=== PATIENT | female | born 1985 | race Caucasian/White ===

== ENCOUNTER 2016-09-18 20:32 | Emergency (ER) | payer OTHER ==
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
== END 2016-09-18 22:55 | disposition left against medical advice (07) ==
LOC: UCEAST 20:32
DX: R10.32 Left lower quadrant pain (principal); R10.31 Right lower quadrant pain; R10.13 Epigastric pain; R19.7 Diarrhea, unspecified; Z32.02 Encounter for pregnancy test, result negative; Z88.0 Allergy status to penicillin; F17.210 Nicotine dependence, cigarettes, uncomplicated
CPT/HCPCS: 81003; 84702; 99212; G0463

== ENCOUNTER 2016-09-19 11:44 | Emergency (ER) | payer OTHER ==
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
[2016-09-19 14:11] LABS: Urine Bilirubin Negative (Negative); Urine Glucose Negative (Negative); Urine Nitrite Negative (Negative)
--- NOTE | 2016-09-19 15:09 | RAD ---
INDICATION: Alternating diarrhea and constipation COMPARISON: None TECHNIQUE: Erect and supine views of the abdomen are submitted. FINDINGS: Bones: There are no acute bony findings. Soft tissues: The soft tissues appear normal. The psoas margins are sharp. Bowel gas pattern: There are no obstructive findings but there is significant retained stool Calcifications: There are no abnormal calcifications. Other: None IMPRESSION: MODERATE RETAINED STOOL.
[2016-09-19] MEDS ORDERED: Magnesium CITRATE* 300 ML BTL PO ONE (15:37)
[2016-09-19] MEDS ORDERED: Famotidine TAB* 20 MG PO ONE (15:38)
[2016-09-19] MEDS ORDERED: Ibuprofen TAB* 400 MG PO ONE (15:39)
[2016-09-19 16:07] VITALS: BP 126/71
== END 2016-09-19 16:06 | disposition home or self-care (01) ==
LOC: ED 11:44
DX: K59.00 Constipation, unspecified (principal); R14.1 Gas pain; R10.9 Unspecified abdominal pain
CPT/HCPCS: 74020; 81003; 99282; A9270-GY

== ENCOUNTER 2017-01-10 19:28 | Emergency (ER) | payer SELFPAY ==
[2017-01-10 19:34] VITALS: BP 134/83
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
== END 2017-01-10 21:15 | disposition home or self-care (01) ==
LOC: UCEAST 19:28
DX: Z72.0 Tobacco use (principal); S93.401A Sprain of unspecified ligament of right ankle, initial encounter; X50.1XXA Overexertion from prolonged static or awkward postures, initial encounter; Y93.9 Activity, unspecified; Y92.9 Unspecified place or not applicable; J45.909 Unspecified asthma, uncomplicated; K21.9 Gastro-esophageal reflux disease without esophagitis; F32.9 Major depressive disorder, single episode, unspecified; F90.9 Attention-deficit hyperactivity disorder, unspecified type; Z88.0 Allergy status to penicillin; Z91.040 Latex allergy status; F17.210 Nicotine dependence, cigarettes, uncomplicated
CPT/HCPCS: 99213; G0463

== ENCOUNTER 2017-02-03 19:39 | Emergency (ER) | payer OTHER ==
[2017-02-03 19:45] VITALS: BP 133/77
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
== END 2017-02-03 20:44 | disposition home or self-care (01) ==
LOC: UCEAST 19:39
DX: R51 Headache (principal); H92.02 Otalgia, left ear; J35.1 Hypertrophy of tonsils; Z88.0 Allergy status to penicillin; Z88.8 Allergy status to other drugs, medicaments and biological substances; Z91.040 Latex allergy status
CPT/HCPCS: 87651; 99212; G0463

== ENCOUNTER 2017-03-07 18:29 | Emergency (ER) | payer OTHER ==
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
[2017-03-07 21:10] LABS: UR Preg Internal Control QC Line Present
--- NOTE | 2017-03-07 21:40 | RAD ---
INDICATION: Chronic ankle pain and temporal bone concern COMPARISON: Right ankle January 10, 2017 TECHNIQUE: AP, lateral, and oblique views were obtained. FINDINGS: The bony structures, joint spaces, and soft tissues are normal for age. IMPRESSION: NEGATIVE EXAMINATION
[2017-03-07 22:07] VITALS: BP 156/74
--- NOTE | 2017-03-08 07:42 | RAD ---
HISTORY: Left-sided pain and numbness, status post otitis media COMPARISONS: None TECHNIQUE: Multiple contiguous axial CT scans of the temporal bones were obtained without intravenous contrast, with coronal and sagittal multiplanar reformations. FINDINGS: RIGHT: EXTERNAL CANAL: Normal. No stenosis or soft tissue abnormality. TYMPANIC MEMBRANE: Normal. No thickening or retraction. OSSICLES: Normal. No erosion. WINDOWS: Normal. No narrowing. MIDDLE EAR: Normal. No abnormal soft tissue or fluid. The scutum is sharp. Prussak's space is clear. MASTOID: Normal. No fluid, sclerosis, or soft tissue abnormality. INNER EAR: There is no clear separation between the arcuate eminence of the superior semicircular canal and the middle cranial fossa. 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 FACIAL CANAL: Normal. No dehiscence. IAC: Normal. No expansion or asymmetry. JUGULAR FORAMEN: Normal. No expansion or erosion. CAROTID CANAL: Normal. No erosion LEFT: EXTERNAL CANAL: Normal. No stenosis or soft tissue abnormality. TYMPANIC MEMBRANE: Normal. No thickening or retraction. OSSICLES: Normal. No erosion. WINDOWS: Normal. No narrowing. MIDDLE EAR: Normal. No abnormal soft tissue or fluid. The scutum is sharp. Prussak's space is clear. MASTOID: Normal. No fluid, sclerosis, or soft tissue abnormality. INNER EAR: There is no clear separation between the arcuate eminence of the superior semicircular canal and the middle cranial fossa. 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 FACIAL CANAL: Normal. No dehiscence. IAC: Normal. No expansion or asymmetry. JUGULAR FORAMEN: Normal. No expansion or erosion. CAROTID CANAL: Normal. No erosion ADDITIONAL FINDINGS: The visualized brain and orbits are unremarkable. The visualized paranasal sinuses are clear. No other bone or soft tissue abnormalities are noted. IMPRESSION: 1. THE MASTOID AIR CELLS ARE CLEAR. THERE IS NO LOCULATED FLUID COLLECTION TO SUGGEST ABSCESS. THERE IS NO INFLAMMATORY CHANGE. 2. DEFECTS OF THE ARCUATE EMINENCE OF THE SUPERIOR SEMICIRCULAR CANALS BILATERALLY, THIS CAN BE ASSOCIATED WITH SUPERIOR SEMICIRCULAR CANAL DEHISCENCE SYNDROME IN THE CORRECT CLINICAL SETTING. 3. 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
== END 2017-03-07 23:15 | disposition home or self-care (01) ==
LOC: ED 18:29
DX: H92.02 Otalgia, left ear (principal); M25.571 Pain in right ankle and joints of right foot; G89.29 Other chronic pain; F31.9 Bipolar disorder, unspecified; Z87.891 Personal history of nicotine dependence; Z88.0 Allergy status to penicillin
CPT/HCPCS: 70480; 81025; 99282

== ENCOUNTER 2017-03-15 18:48 | Emergency (ER) | payer OTHER ==
[2017-03-15 20:59] VITALS: BP 126/85
[2017-03-15] MEDS ORDERED: Albuterol/Ipratropium NEB.SOL* Albuterol 2.5 MG/Ipratropium 0.5 MG 3 ML INH ONE (22:53)
[2017-03-15] MEDS ORDERED: diPHENhydraMINE PO* 50 MG PO ONE (22:53)
[2017-03-15] MEDS ORDERED: Ondansetron ODT TAB* 4 MG PO ONE (23:55)
[2017-03-16] MEDS ORDERED: oxyCODONE/Acetamin 5/325 MG* TAB PO ONE (00:08)
[2017-03-16] MEDS ORDERED: diPHENhydraMINE PO* 50 MG PO ONE (01:21)
[2017-03-16] MEDS ORDERED: Ondansetron ODT TAB* 4 MG PO ONE (01:22)
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
== END 2017-03-16 02:12 | disposition home or self-care (01) ==
LOC: ED 18:48
DX: T63.441A Toxic effect of venom of bees, accidental (unintentional), initial encounter (principal); R51 Headache; Y92.9 Unspecified place or not applicable; R11.0 Nausea; R06.02 Shortness of breath; R53.83 Other fatigue; Z87.891 Personal history of nicotine dependence
CPT/HCPCS: 94640; 99282; A9270-GY

== ENCOUNTER 2017-05-24 22:09 | Emergency (ER) | payer OTHER ==
[2017-05-25 00:41] VITALS: BP 130/80
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
== END 2017-05-25 00:45 | disposition home or self-care (01) ==
LOC: ED 22:09
DX: R19.00 Intra-abdominal and pelvic swelling, mass and lump, unspecified site (principal); R11.0 Nausea; R10.9 Unspecified abdominal pain; F17.210 Nicotine dependence, cigarettes, uncomplicated
CPT/HCPCS: 99283

== ENCOUNTER 2017-08-05 17:12 | Emergency (ER) | payer OTHER ==
[2017-08-05] MEDS ORDERED: Ibuprofen TAB* 600 MG PO ONE (18:27)
[2017-08-05] MEDS ORDERED: Ondansetron ODT TAB* 4 MG PO ONE (18:27)
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
[2017-08-05 18:40] VITALS: BP 145/94
[2017-08-05] MEDS ORDERED: SUMAtriptan TAB* 100 MG PO ONE (18:53)
== END 2017-08-05 18:37 | disposition home or self-care (01) ==
LOC: ED 17:12
DX: B34.9 Viral infection, unspecified (principal); B95.8 Unspecified staphylococcus as the cause of diseases classified elsewhere; R51 Headache; R21 Rash and other nonspecific skin eruption; R11.0 Nausea; H92.09 Otalgia, unspecified ear; Z87.09 Personal history of other diseases of the respiratory system
CPT/HCPCS: 99282; A9270-GY

== ENCOUNTER 2017-12-27 15:19 | Emergency (ER) | payer MEDICARE, MEDICAID ==
[2017-12-27 15:29] VITALS: BP 140/95
[2017-12-27] MEDS: Ketorolac INJ* 60 MG/2 ML VIAL IM ONE ×2 (17:16→17:18)
--- NOTE | 2017-12-27 17:39 | RAD ---
INDICATION: Back pain COMPARISON: None TECHNIQUE: Routine 2 view imaging was performed FINDINGS: Bones: There are no acute bony findings. There are no significant osteoarthritic findings. Alignment: Normal Disc spaces: The disc spaces are well-maintained Soft tissues: There are no soft tissue abnormalities. IMPRESSION: NO PLAIN RADIOGRAPHIC ABNORMALITIES.
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
[2017-12-27] MEDS: Cyclobenzaprine TAB* 10 MG PO ONE ×2 (18:04→18:05)
[2017-12-27] MEDS ORDERED: Lidocaine PATCH 5%* 1 PATCH ONE (18:14)
[2017-12-27] MEDS ORDERED: Lidocaine PATCH 5%* 1 PATCH TRANSDERM SCH (19:00)
== END 2017-12-27 18:19 | disposition home or self-care (01) ==
LOC: ED 15:19
DX: M54.9 Dorsalgia, unspecified (principal); F17.290 Nicotine dependence, other tobacco product, uncomplicated; M47.9 Spondylosis, unspecified; Z79.899 Other long term (current) drug therapy; Z88.0 Allergy status to penicillin; Z88.8 Allergy status to other drugs, medicaments and biological substances
CPT/HCPCS: 72070; 99282; A9270-GY; J1885

== ENCOUNTER 2018-06-07 19:35 | Emergency (ER) | payer MEDICARE, MEDICAID ==
--- OUTSIDE RECORDS SUMMARY | 2018-06-07 20:23 | XMS REPORT | Continuity of Care Document ---
:1985 External Reference #:[id number] Author Name Gregory Greenwood Care Team Providers Name Role Phone Charisma Padron MD Primary Care Physician Unavailable Payers Type Date Identification Numbers Payment Provider Subscriber Policy Number: [id number] Medicare Amanda Lai PayID: [id number] [address] [place] [address] Policy Number: [id number] Medicaid Amanda Lai Group Name: 1 1 [address] PayID: [id number] [place] [address] Advance Directives Description No Information Available Problems Date Description Provider Status Onset: 07/05/2015 Asthma Adair Wick NP Active Onset: 07/05/2015 Schizoaffective disorder, bipolar type Adair Wick NP Active Onset: 07/05/2015 Borderline personality disorder Adair Wick NP Active Family History Date Family Member(s) Problem(s) Comments Father 65 Mother Asthma Mother 63 Bone cancer Mother Arthritis, Osteo knees and back Mother Hypertension Siblings 2 Brother, 34, healthy Sister, 27, eating disorder Social History Type Date Description Comments Sex Unknown Marital Status Single Lives With Alone Occupation Unemployed Tobacco Use Start: Unknown Former Cigarette Quit Feb 2016; End: Unknown Smoker previously max 1ppd, began age 16 Smoking Status Reviewed: 05/28/18 Former Cigarette Quit Feb 2016; Smoker previously max 1ppd, began age 16 ETOH Use Denies alcohol use Tobacco Use Start: Unknown Patient is a current pt smokes E- Cig smoker, smokes every day Recreational Drug Use Former Drug User Exercise Type/Frequency Exercises regularly Currently Active Patient is currently sexually active Allergies, Adverse Reactions, Alerts Date Description Reaction Status Severity Comments 07/29/2009 [place]ama Active 07/29/2009 Penicillins Active 07/29/2009 Geodon Active 05/09/2016 Restoril fainting Active Medications Medication Date Status Form Strength Qnty SIG Indications Ordering Provider Viktoria 05/28 Active Capsules 75mg 30cap take one Adair s capsule by RANJAN Wick mouth once daily Valtrex 03/22 Active Tablets 500mg 30tab one tablet A60.04 Dvorah s twice a MD Mihaela day x 3 days as needed exacerbati on Nystatin 03/22 Active Cream [id number] 15gm apply to L30.4 Dvora t/GM inner MD Mihaela thighs twice a day until resolves Levocetirizine 02/15 Active Tablets 5mg 30tab 1 by mouth Adair Dihydrochloride s every at RANJAN Wick bedtime Proair 02/02 Active Aerosol 108(90Bas 1unit 2 puffs J45.20 Adair Respiclick e) s four times RANJAN Wick mcg/Act a day as needed Triamcinolone 01/19 Active Cream 0.5% 45gm apply R21 Adair Acetonide twice RANJAN Wick daily to the affected area Nystatin 01/19 Active Powder [id number] 60gm after B37.0 Adair t/GM cleansing RANJAN Wick and drying affected area, apply powder liberally every 8 hours Dicyclomine HCL 12/04 Active Capsules 10mg 60cap one Adair s capsule 2 RANJAN Wick times daily as needed Proctosol HC 11/05 Active Cream 2.5% 28.35 apply thin K64.9 Adair 0gm film to RANJAN Wick affected area 2-4 times daily Probiotic 07/05 Active Capsules 30cap 1 by mouth R19.7 Adair /2017 s every day RANJAN Wick Omeprazole 06/[address] 20mg 30cap 1 by mouth Charisma s every day Loraine Padron Albuterol 12/05 Active Nebulizer (2.5mg/3M 75ml use 1 vial R05 Adair Sulfate L) 0.083% via RANJAN Wick nebulizer 4 times daily as needed Dx R05 Pepto-Bismol 09/14 Active Tablets 262mg 45tab 2 tablets R19.7 Adari /2016 s every 4 RANJAN Wick hours as needed Metamucil Smooth 07/15 Active Powder 28.3% 1unit per K59.00 Adair Texture s package RANJAN Wick instructio ns Saline Mist 05/09 Active Solution 0.65% 45ml spray in R04.0 Adair [place] /2015 each RANJAN Wick nostril 6-8 times daily Colace / Active Capsules 100mg 90cap 1 by mouth Adair s up to 3 RANJAN Wick times a day as needed for constipati on. Fluticasone 10/07 Active Suspension 50mcg/Act 1unit 2 sprays J32.9 Adair Propionate s each RANJAN Wick nostril everyday Miralax 10/07 Active Powder 3350NF 510un 17 gm K58.0 Ciera /2015 its every day chilango Alexandre w/ 8 M.D. oz water/juic e Knee 07/02 Active Misc Adair Support/Elastic RANJAN Wick Sheer/Large Prilosec OTC 09/[address] 20mg 30tab 1 by mouth K21.9 Adair /2009 s every day RANJAN Wick Acyclovir Active Ointment 5% 30gm apply to Adair affected RANJAN Wick areas by topical route every three hours six times per day. Ezh-Til-Hlau-D Active Tablets 1 po daily Unknown 0000 Advair HFA Active Aerosol 45-21mcg/ 8unit inhale two Charisma 0000 Act s puffs Cotton, twice a M.D. day by ihnalation route, kept on person Sumatriptan Active Tablets 100mg 9tabs take one Adair Succinate tab by RANJAN Wick mouthas needed for migraine-m ay not exceed 200mg in twenty four period Mupirocin Active Ointment 2% Unknown Ondansetron Active Tablets 4mg Unknown / Dispers Melatonin Active Tablets 2 by mouth Unknown Dispers every night at bedtime Vyvanse Active Capsules 20mg once a day Isaias, /0000 MD Earline Olanzapine Active Tablets 20mg Isaias, Dispers MD Earline Escitalopram Active Tablets 10mg Unknown Oxalate Diphenhydramine Active Capsules 50mg Unknown HCL / Meloxicam Active Tablets 7.5mg 60tab take one Adair /0000 s tab by RANJAN Wick mouth two times daily as needed for pain Cyclobenzaprine Active Tablets 10mg 90tab one by Adair HCL /0000 s mouth RANJAN Wick three times a day as needed spasm Montelukast Active Tablets 10mg 30tab Take One Adair Sodium /0000 s Tablet By RANJAN Wick Mouth Every Night AT Bedtime Doxycycline 04/23 Hx Tablets 100mg 20tab 1 po bid x L08.9 Nighat Hyclate /2017 s 10 days Varn, N.P. - 05/03 Clindamycin HCL 01/19 Hx Capsules 300mg 21cap one K08.89 Adair s capsule by RANJAN Wick - mouth 01/23 every hours for 7 days Acetaminophen-Co 01/19 Hx Tablets 300-30mg 16tab 1-2 K08.89 Adair deine #3 s tablets RANJAN Wick - every 12 Fluconazole 01/19 Hx Tablets 150mg 2tabs one by B37.2 Adair mouth october RANJAN Wick - repeat in 01/23 3 days needed Clotrimazole 07/05 Hx Lozenges 10mg 70uni one B37.9 Adair ts lozenge 5 RANJAN Wick - x day for 09/01 2 weeks. Cetirizine HCL 07/05 Hx Tablets 10mg 30tab 1 by mouth J32.9 Charisma s every day Eugenia Padron M.D. 04/23 Pantoprazole 05/[address] 20mg 30tab 1 by mouth K21.9 Nighat Sodium s every day Varn, N.P. - 07/05 Clindamycin 04/28 Hx Lotion 1% 60ml apply L70.0 Adair Phosphate twice RANJAN Wick - daily to 09/01 areas Cetirizine HCL 01/19 Hx Tablets 10mg 30tab 1 by mouth J32.9 Adair /2016 s every day RANJAN Wick - 04/28 Loratadine 12/29 Hx Tablets 10mg 30tab 1 by mouth Adair s daily Delano, ADMISSIONS ADVISOR - every 11/02 night at bedtime Fluconazole 12/13 Hx Tablets 150mg 2tabs one by mouth october RANJAN Wick - repeat in 08/17 3 days needed Robitussin 12/05 Hx Liquid 100mg/5ML 236ml 2 teaspoon R05 Adair Mucus+Chest 4 times a Delano ADMISSIONS ADVISOR Congestion - day 12/05 Nystatin 12/05 Hx Suspension [id number] 250ml 4 B37.0 t/ML milliliter Delano, ADMISSIONS ADVISOR - s four 01/19 times a day, swish and swallow for 14 days Clindamycin HCL 12/05 Hx Capsules 300mg 40cap one K08.89 s capsule by RANJAN Wick - mouth 12/15 every hours for 10 days Robitussin DM 12/05 Hx Syrup 100-10mg/ 118ml 10ml every R05 5ML 4-6 hours RANJAN Wick - 12/21 QC Natural 10/20 Hx Powder 95% 368un Use Per Adair its Package RANJAN Wick - Instructio 09/01 ns Gabapentin 10/13 Hx Capsules 100mg 90cap take 3 s capsule by Varkelly, N.P. - mouth 05/28 times a day Benzonatate 10/13 Hx Capsules 200mg 30cap one by s mouth RANJAN Wick - three 12/21 daily as needed for cough Doxycycline 10/13 Hx Capsules 100mg 20cap one tablet J01.90 Adair Hyclate s twice RANJAN Wick - daily for 10/23 10 days. Ondansetron HCL 09/14 Hx Tablets 4mg 20tab 1 tab R11.0 s every 8 RANJAN Wick - hours as 09/21 needed nausea Rectiv 08/08 Hx Ointment 0.4% 90gm apply K60.1 Tan P. /2017 intra-anal MD Yuli, - ly twice a FACS 11/02 day for weeks Lidocaine 08/08 Hx Solution 2% 100ml apply to K60.1 Tan Manzo. Viscous buttock MD Ylui, - every 12 FACS 12/21 hours as /2017 needed pain Benzonatate 07/22 Hx Capsules 200mg 30cap 1 tab by J01.90 Adair s mouth RANJAN Wick - three 08/02 times day as needed Doxycycline 04/21 Hx Capsules 100mg 20cap 1 by mouth Rosalva Hycl s twice a Craven, - day M.D. 05/09 Tessalon Perles 04/15 Hx Capsules 100mg 30cap 1-2 by Cristian EParrish s mouth Kalani, - three M.D. 05/09 times day as needed for cough Dextromethorphan 04/15 Hx Solution 10-100mg/ 200ml 5 mL every Jarocho -Guaifen 5ML 6 hours as Kermit, - needed for M.D. 05/09 cough Nicotine Mini 04/14 Hx Lozenges 4mg 162un 1 by mouth Cristian E. its up to 3 Kalani, - times per M.D. 12/21 hour, is 20 per day Loratadine 11/16 Hx Tablets 10mg 30tab 1 by mouth s daily Baldomero, - every M.D. 10/27 night at bedtime Ondansetron HCL 11/12 Hx Tablets 8mg 20tab take 1 by R11.0 s mouth as Baldomero, - need 1-2 x M.D. 04/14 per for nausea Anucort-HC 10/07 Hx Suppository 25mg 24uni [address] K64.9 ts of rectum RANJAN Wick - every 8 11/05 hours needed. Hydrocortisone 10/07 Hx Cream 2.5% 45gm apply as K64.9 needed Baldomero, - M.D. 04/14 Fluconazole 08/24 Hx Tablets 150mg 2tabs 1 by mouth then Baldomero, - repeat x1 M.D. 04/14 in Doxycycline 07/[address] 100mg 20tab 1 by mouth Cristian Salcedo clate s twice a Kalani, - day x 10 M.D. Benzonatate 07/08 Hx Capsules 200mg 30cap 1 tab by J01.90 Cristian E. s mouth Kalani, - three M.D. 08/21 times a day as needed Ventolin HFA 07/08 Hx Aerosol 108(90Bas 1unit 2 puffs J45.20 Charisma /2016 e) s four times Cotton, - mcg/Act a day as M.D. 02/02 Calcium-Magnesiu 07/02 Hx Tablets 333-133-5 30tab one tablet Adair m-Zinc mg s daily. RANJAN Wick - 07/02 Seasonique 04/28 Hx Tablets 0.15-0.03 91tab take 1 Cristian E. &0.01mg s tablet by Kalani, - mouth once M.D. 07/02 a day Daily Vitamin 04/28 Hx Tablets 1 daily Cristian E. Formula+Iron Eugenia Uriarte M.D. 07/02 Flovent HFA 04/28 Hx Aerosol 110mcg/Ac 1unit 2 puff bid Cristian Salcedo t s Eugenia Uriarte M.D. 07/02 Spacer Tube 04/28 Hx 1unit use with Cristian Salcedo /2010 s Angelo Uriarte - inhaler M.DParrish 07/02 Ibuprofen 12/09 Hx Tablets 400mg 100ta 400 mg po E885.9 Gurdeep /2010 bs q4-6h; nataly Glaser, - 2400 M.D.,FACP 07/02 mg/day Singulair 06/09 Hx Tablets 10mg 30tab 1 po qd 493.00 [place] /2009 Eugenia Montague M.D. 12/09 Cipro 01/04 Hx Tablets 500mg 20tab bid 599.0 Mervat, /2009 s MD Gunner - 05/11 Ventolin HFA 07/29 Hx Aerosol 108(90Bas 1unit 2 puffs 493.00 Cristian EParrish e) mcg/ac s qid prn Eugenia Uriarte M.D. 07/08 Advair Diskus 07/29 Hx Misc 250-50mcg 2unit 1 puff bid 493.00 Prestonanomichelle /2009 /Dose s Toni - M.D. 06/09 Cleocin-T 07/29 Hx Gel 1% 1tube 1 706.1 Gurdeep millie Glaser - kelly loving M.D.,[facility] 07/02 Noris Hx Tablets 3-0.02mg 1Mont 1 po qd Unknown /0000 h - 04/28 Ambien Hx Tablets 10mg 10tab 1 po qhs Unknown /0000 s prn sleep - insomnia 06/09 Neurontin Hx Capsules 100mg 90cap tid Unknown /0000 s - 11/24 Zyprexa Hx Tablets 10mg 1 po qpm Unknown 0000 - 12/28 Celexa Hx Tablets po bid - 12/09 Ambien Hx Tablets 10mg 30tab 1 po qhs Unknown /0000 s prn sleep - insomnia 10/07 Docqlace Hx Capsules 100mg take 1 cap Sim- twice ktor, - daily by Jaida Card, 04/14 mouth as needed Valacyclovir HCL Hx Tablets 500mg take one Sim- tab by joe, - mouth Jaida Card, 04/14 every 12hrs for 5 days Naproxen Hx Tablets 500mg one tab Sim-0000 twice ktor, - daily as Jaida Card, 04/14 needed Nicotine Hx Gum 4mg Sim- Polacrilex / ktor, - Jaida Card, 07/08 Clonidine HCL Hx Tablets 0.1mg take one Unknown 0000 tab by - mouth at 11/02 bedtime Citalopram Hx Tablets 20mg take one Unknown Hydrobromide 0000 tab by - mouth 10/07 Mupirocin Hx Ointment 2% apply to iGnamackenzie, affected [facility] herb Mcfarland, 04/14 times daily Tizanidine HCL Hx Tablets 4mg take one Unknown 0000 tab by - mouth 04/14 times a day as needed Ibuprofen Hx Tablets 600mg 1 by mouth Unknown /0000 three - times a 04/14 day as needed Norethindrone Hx Tablets 0.35mg 1 by mouth Unknown /0000 every day - 07/08 Calcium-Magnesiu Hx Tablets daily Unknown m-Zinc /0000 - 08/21 Zofran Hx Solution 4mg/5ML one every Unknown /0000 six to - eight 04/14 hours needed Zoloft Hx Tablets 50mg 1 by mouth Unknown /0000 every day - 04/14 Trazodone HCL Hx Tablets 100mg 1 by mouth Unknown /0000 every - night at 04/14 Bupropion HCL ER Hx Tablets ER 150mg 1 by mouth Unknown (SR) /0000 12HR a day - 09/01 Ambien CR Hx Tablets ER 12.5mg take 1 Unknown /0000 tablet by - mouth at 09/01 max 1/day Pro-Elite Hx diet pill Unknown /0000 - 09/01 Levocetirizine Hx Tablets 5mg 30tab 1 by mouth J32.9 Adair Dihydrochloride /0000 s every at Delano, ADMISSIONS ADVISOR - bedtime 01/19 Tizanidine HCL Hx Capsules 4mg 1 three Unknown /0000 times a - day as 12/21 needed Ibuprofen Hx Tablets 600mg 1 by mouth Unknown /0000 three - times a 11/07 day needed Methylphenidate Hx Tablets ER 36mg pending. Unknown HCL ER /0000 24HR pt does - not like 09/01 med. /2017 Benadryl Allergy Hx Tablets 25mg 2 tabs by Unknown /0000 mouth 1 - hour prior 12/28 to procedure Hyoscyamine Hx Tablets 0.125mg 120ta take one Adair Sulfate /0000 Dispers bs tab by Delano, ADMISSIONS ADVISOR - mouth four 12/04 time daily Immunizations CPT Code Status Date Vaccine Reaction Lot # [id number] Given 04/28/2017 Influenza Virus Vaccine, No immediate [id number] Quadrivalent, Split, reaction...jh Preservative Free [id number] Given 03/28/2011 Influenza Virus 3Yrs & Over [id number] Vital Signs Date Vital Result Comment 05/28/2018 3:59pm Height 68 inches 5'8" Weight 251.00 lb Heart Rate 113 /min BP Systolic 147 mmHg BP Diastolic 91 mmHg O2 % BldC Oximetry 95 % BMI (Body Mass Index) 38.2 kg/m2 04/23/2018 3:34pm Height 68 inches 5'8" Weight 247.00 lb Heart Rate 110 /min BP Systolic 139 mmHg BP Diastolic 85 mmHg Body Temperature 97.9 F O2 % BldC Oximetry 96 % BMI (Body Mass Index) 37.6 kg/m2 03/22/2018 10:02am Height 68 inches 5'8" Weight 233.00 lb Heart Rate 115 /min BP Systolic 120 mmHg BP Diastolic 60 mmHg O2 % BldC Oximetry 97 % BMI (Body Mass Index) 35.4 kg/m2 Last Menstrual Period [id number] 03/15/2018 2:57pm Height 68 inches 5'8" Weight 233.00 lb Heart Rate 109 /min BP Systolic 134 mmHg BP Diastolic 86 mmHg Body Temperature 98.7 F O2 % BldC Oximetry 97 % BMI (Body Mass Index) 35.4 kg/m2 01/19/2018 3:46pm Height 68 inches 5'8" Weight 235.50 lb Heart Rate 114 /min BP Systolic 138 mmHg BP Diastolic 79 mmHg Body Temperature 98.1 F O2 % BldC Oximetry 98 % BMI (Body Mass Index) 35.8 kg/m2 12/29/2017 3:50pm Height 68 inches 5'8" Weight 235.00 lb Heart Rate 114 /min BP Systolic Sitting 152 mmHg BP Diastolic Sitting 89 mmHg Body Temperature 98.8 F O2 % BldC Oximetry 97 % BMI (Body Mass Index) 35.7 kg/m2 11/02/2017 1:28pm Weight 234.50 lb Heart Rate 98 /min BP Systolic 124 mmHg BP Diastolic 72 mmHg Body Temperature 98.3 F O2 % BldC Oximetry 95 % 09/01/2017 12:57pm Weight 228.00 lb Heart Rate 108 /min BP Systolic 126 mmHg BP Diastolic 84 mmHg Body Temperature 98.8 F O2 % BldC Oximetry 96 % 07/05/2017 2:41pm Weight 229.00 lb Heart Rate 110 /min BP Systolic 128 mmHg BP Diastolic 80 mmHg Body Temperature 98.5 F O2 % BldC Oximetry 98 % 05/05/2017 1:57pm Weight 227.00 lb Heart Rate 114 /min BP Systolic 118 mmHg BP Diastolic 82 mmHg Body Temperature 98.5 F O2 % BldC Oximetry 98 % 04/28/2017 3:49pm Weight 227.75 lb Heart Rate 133 /min BP Systolic Sitting 122 mmHg BP Diastolic Sitting 80 mmHg Body Temperature 98.8 F O2 % BldC Oximetry 98 % 12/05/2016 1:15pm Weight 233.50 lb BP Systolic 126 mmHg BP Diastolic 78 mmHg Body Temperature 96.8 F 10/13/2016 11:40am Weight 254.50 lb Heart Rate 104 /min BP Systolic 110 mmHg BP Diastolic 70 mmHg Body Temperature 97.8 F O2 % BldC Oximetry 96 % 09/14/2016 11:14am Weight 247.00 lb with shoes Heart Rate 112 /min BP Systolic 98 mmHg BP Diastolic 66 mmHg Body Temperature 97.7 F O2 % BldC Oximetry 98 % 08/08/2016 3:31pm Height 68 inches 5'8" Weight 240.00 lb Heart Rate 88 /min BP Systolic 138 mmHg BP Diastolic 90 mmHg Respiratory Rate 18 /min Body Temperature 97.9 F BMI (Body Mass Index) 36.5 kg/m2 08/04/2016 2:05pm Height 68 inches 5'8" Weight 240.00 lb Heart Rate 104 /min BP Systolic 152 mmHg BP Diastolic 98 mmHg Respiratory Rate 18 /min Body Temperature 98.4 F BMI (Body Mass Index) 36.5 kg/m2 07/22/2016 2:56pm Weight 248.00 lb Heart Rate 129 /min BP Systolic Sitting 138 mmHg BP Diastolic Sitting 86 mmHg Body Temperature 99.9 F O2 % BldC Oximetry 97 % 07/15/2016 1:41pm Weight 247.00 lb Heart Rate 108 /min BP Systolic Sitting 124 mmHg BP Diastolic Sitting 86 mmHg Body Temperature 98.6 F O2 % BldC Oximetry 96 % 05/09/2016 1:34pm Weight 248.00 lb with shoes Heart Rate 125 /min BP Systolic Sitting 136 mmHg BP Diastolic Sitting 76 mmHg Body Temperature 98.0 F O2 % BldC Oximetry 98 % 04/14/2016 2:12pm Weight 242.38 lb Heart Rate 91 /min BP Systolic Sitting 120 mmHg BP Diastolic Sitting 60 mmHg Body Temperature 98.8 F O2 % BldC Oximetry 98 % 11/13/2015 1:49pm Weight 244.00 lb Heart Rate 114 /min BP Systolic Sitting 143 mmHg BP Diastolic Sitting 80 mmHg Body Temperature 98.7 F 10/08/2015 1:43pm Weight 247.00 lb Heart Rate 96 /min BP Systolic Sitting 142 mmHg BP Diastolic Sitting 87 mmHg Body Temperature 97.9 F 08/21/2015 1:33pm Height 67 inches 5'7" Weight 245.25 lb Heart Rate 88 /min BP Systolic 120 mmHg BP Diastolic 74 mmHg Body Temperature 98.1 F O2 % BldC Oximetry 98 % BMI (Body Mass Index) 38.4 kg/m2 08/21/2015 1:31pm Height 67 inches 5'7" Weight 245.25 lb BMI (Body Mass Index) 38.4 kg/m2 07/21/2015 4:38pm Height 67.5 inches 5'7.50" Weight 240.00 lb Heart Rate 113 /min BP Systolic 162 mmHg BP Diastolic 89 mmHg Body Temperature 99.7 F O2 % BldC Oximetry 98 % BMI (Body Mass Index) 37.0 kg/m2 07/08/2015 4:01pm Height 67.5 inches 5'7.50" Weight 240.00 lb Heart Rate 98 /min BP Systolic 138 mmHg BP Diastolic 80 mmHg Body Temperature 99.3 F O2 % BldC Oximetry 99 % BMI (Body Mass Index) 37.0 kg/m2 07/02/2015 3:15pm Height 67.5 inches 5'7.50" Weight 240.00 lb Heart Rate 92 /min BP Systolic Sitting 108 mmHg BP Diastolic Sitting 60 mmHg Body Temperature 98.4 F O2 % BldC Oximetry 98 % BMI (Body Mass Index) 37.0 kg/m2 04/28/2011 3:32pm Height 67.5 inches 5'7.50" Weight 200.25 lb Heart Rate 88 /min BP Systolic Sitting 100 mmHg BP Diastolic Sitting 60 mmHg Body Temperature 99.2 F BMI (Body Mass Index) 30.9 kg/m2 03/28/2011 3:06pm Weight 203.00 lb Heart Rate 94 /min BP Systolic Sitting 100 mmHg BP Diastolic Sitting 60 mmHg Body Temperature 96.8 F 12/09/2010 4:06pm Weight 199.00 lb Heart Rate 70 /min BP Systolic Sitting 100 mmHg BP Diastolic Sitting 62 mmHg 06/09/2010 1:29pm Weight 202.00 lb Heart Rate 96 /min BP Systolic 104 mmHg BP Diastolic 60 mmHg 01/04/2010 4:00pm Weight 210.00 lb Heart Rate 100 /min BP Systolic Sitting 102 mmHg BP Diastolic Sitting 72 mmHg 08/25/2009 3:42pm Heart Rate 66 /min BP Systolic Sitting 128 mmHg BP Diastolic Sitting 80 mmHg Body Temperature 99.1 F 07/29/2009 2:23pm Height 67.50 inches 5'7.50" Weight 230.00 lb Heart Rate 88 /min BP Systolic Sitting 140 mmHg BP Diastolic Sitting 8 mmHg BMI (Body Mass Index) 35.5 kg/m2 Results Test Date Facility Test Result H/L Range Note Laboratory test [facility] Cytology SEE RESULT 1 finding [address] [place] [address] [phone] GC/Chlamydia [facility] Chlamydia Negative Negative Amplified Rna [address] [place] [address] [phone] Neisseria gonorrhoeae (GC) Rna Negative Negative CBC Auto 11/02/2017 [facility] White Blood 11.4 10^3/uL High 3.5-10.[address] [place] [address] [phone] Red Blood Count 4.41 10^6/uL N 4.0-5.4 Hemoglobin 13.2 g/dL N 12.0-16.0 Hematocrit 38 % N 35-47 Mean Corpuscular Volume 87 fL N 80-97 Mean Corpuscular Hemoglobin 30 pg N 27-31 Mean Corpuscular HGB Conc 34 g/dL N 31-36 Red Cell Distribution Width 13 % N 10.5-15 Platelet Count 355 10^3/uL N 150-450 Mean Platelet Volume 7.7 um3 N 7.4-10.4 Abs Neutrophils 5.5 10^3/uL N 1.5-7.7 Abs Lymphocytes 5.1 10^3/uL High 1.0-4.8 Abs Monocytes 0.7 10^3/uL N 0-0.8 Abs Eosinophils 0.1 10^3/uL N 0-0.6 Abs Basophils 0.1 10^3/uL N 0-0.2 Abs Nucleated RBC 0 10^3/uL Granulocyte % 47.8 % N 38-83 Lymphocyte % 44.7 % N 25-47 Monocyte % 5.9 % N 0-7 Eosinophil % 0.9 % N 0-6 Basophil % 0.7 % N 0-2 Nucleated Red Blood Cells % 0 Comp Metabolic Panel 11/02/2017 [facility] Sodium 142 mmol/L N 139-145 [address] [place] [address] [phone] Potassium 4.0 mmol/L N 3.5-5.0 Chloride 107 mmol/L N 101-111 Co2 Carbon Dioxide 26 mmol/L N 22-32 Anion Gap 9 mmol/L N 2-11 Glucose 116 mg/dL High 70-100 Blood Urea Nitrogen 6 mg/dL N 6-24 Creatinine 0.60 mg/dL N 0.51-0.95 BUN/Creatinine Ratio 10.0 N 8-20 Calcium 9.2 mg/dL N 8.6-10.3 Total Protein 6.8 g/dL N 6.4-8.9 Albumin 4.3 g/dL N 3.2-5.2 Globulin 2.5 g/dL N 2-4 Albumin/Globulin Ratio 1.7 N 1-3 Total Bilirubin 0.40 mg/dL N 0.2-1.0 Alkaline Phosphatase 59 U/L N 34-104 Alt 20 U/L N 7-52 Ast 15 U/L N 13-39 Egfr Non- 115.9 >60 Egfr 149.0 >60 2 Laboratory test 11/02/2017 [facility] Lipase 10 U/L Low 11.0- 82.0 finding [address] [place] [address] [phone] Erythrocyte Sed Rate 13 mm/Hr N 0-14 C Reactive Protein 5.04 mg/L High < 5.00 3 Urinalysis Profile 11/02/2017 [facility] Urine Color Straw [address] [place] [address] [phone] Urine Appearance Clear Urine Specific Marshall 1.003 Low 1.010-1.030 Urine pH 8.0 N 5-9 Urine Urobilinogen Negative Negative Urine Ketones Negative Negative Urine Protein Negative Negative Urine Leukocytes Negative Negative Urine Blood Negative Negative Urine Nitrite Negative Negative Urine Bilirubin Negative Negative Urine Glucose Negative Negative Laboratory test 11/02/2017 [facility] TSH (Thyroid 1.33 N 0.34 -5.[address] [facility] Stim Horm) mcIU/[place] [address] [phone] CBC Auto Diff 07/05/2017 [facility] White Blood 11.8 High 3.5- 10.[address] Count 10^3/[place] [address] [phone] Red Blood Count 4.74 10^6/uL N 4.0-5.4 Hemoglobin 14.1 g/dL N 12.0-16.0 Hematocrit 41 % N 35-47 Mean Corpuscular Volume 87 fL N 80-97 Mean Corpuscular Hemoglobin 30 pg N 27-31 Mean Corpuscular HGB Conc 34 g/dL N 31-36 Red Cell Distribution Width 13 % N 10.5-15 Platelet Count 320 10^3/uL N 150-450 Mean Platelet Volume 8 um3 N 7.4-10.4 Abs Neutrophils 7.0 10^3/uL N 1.5-7.7 Abs Lymphocytes 4.0 10^3/uL N 1.0-4.8 Abs Monocytes 0.7 10^3/uL N 0-0.8 Abs Eosinophils 0.1 10^3/uL N 0-0.6 Abs Basophils 0.1 10^3/uL N 0-0.2 Abs Nucleated RBC 0 10^3/uL Granulocyte % 59.6 % N 38-83 Lymphocyte % 33.6 % N 25-47 Monocyte % 5.8 % N 1-9 Eosinophil % 0.5 % N 0-6 Basophil % 0.5 % N 0-2 Nucleated Red Blood Cells % 0 Comp Metabolic Panel 07/05/2017 [facility] Sodium 138 mmol/L N 133-[address] [place] [address] [phone] Potassium 4.0 mmol/L N 3.5-5.0 Chloride 104 mmol/L N 101-111 Co2 Carbon Dioxide 26 mmol/L N 22-32 Anion Gap 8 mmol/L N 2-11 Glucose 140 mg/dL High 70-100 Blood Urea Nitrogen 9 mg/dL N 6-24 Creatinine 0.67 mg/dL N 0.51-0.95 BUN/Creatinine Ratio 13.4 N 8-20 Calcium 9.2 mg/dL N 8.6-10.3 Total Protein 6.6 g/dL N 6.4-8.9 Albumin 4.1 g/dL N 3.2-5.2 Globulin 2.5 g/dL N 2-4 Albumin/Globulin Ratio 1.6 N 1-3 Total Bilirubin 0.40 mg/dL N 0.2-1.0 Alkaline Phosphatase 56 U/L N 34-104 Alt 32 U/L N 7-52 Ast 21 U/L N 13-39 Egfr Non- 102.0 >60 Egfr 131.2 >60 4 Laboratory test 07/05/2017 [facility] Lipase < 10 U/L Low 11.0 -82.[address] [place] [address] [phone] Urinalysis 07/05/2017 [facility] Urine Color Yellow Profile [address] [place], [place] [id number] [phone] Urine Appearance Clear Urine Specific Marshall 1.013 N 1.010-1.030 Urine pH 5.0 N 5-9 Urine Urobilinogen Negative Negative Urine Ketones Negative Negative Urine Protein Negative Negative Urine Leukocytes Negative Negative Urine Blood Negative Negative Urine Nitrite Negative Negative Urine Bilirubin Negative Negative Urine Glucose Negative Negative Laboratory test 03/07/2017 [facility] (HCG) Negative N Negative 5 finding 101 [place] [address] [phone] Laboratory test 02/03/2017 [facility] Rapid Strep Negative N Negative [address] Molecular [place], [place] [id number] [phone] Urinalysis 09/19/2016 [facility] Urine Color Straw N Profile [address] [place], [place] [id number] [phone] Urine Appearance Clear N Urine Specific Marshall 1.002 Low 1.010-1.030 Urine pH 8.0 N 5-9 Urine Urobilinogen Negative N Negative Urine Ketones Negative N Negative Urine Protein Negative N Negative Urine Leukocytes Negative N Negative Urine Blood Negative N Negative Urine Nitrite Negative N Negative Urine Bilirubin Negative N Negative Urine Glucose Negative N Negative Wound 02/18/2016 [facility] Wound/Misc SEE RESULT 7, 8 Culture/Sensi [address] [place] [address] Stain [phone] Ua Routine 11/13/2015 [facility] House Ua Specific 1.020 Marshall Ua PH 5 Ua Color dark yellow Ua Appera cloudy Ua WBC neg Ua Protein neg Ua Glucose neg Ua Ketones neg Ua Bilirubin neg Ua Urobilinogen norm Ua Nitrite neg Ua Occult Blood neg CBC Auto Diff 11/13/2015 [facility] White Blood 9.1 10^3/uL N 3.5-10.[address] [place] [address] [phone] Red Blood Count 4.58 10^6/uL N 4.0-5.4 Hemoglobin 13.4 g/dL N 12.0-16.0 Hematocrit 41 % N 35-47 Mean Corpuscular Volume 90 fL N 80-97 Mean Corpuscular Hemoglobin 29 pg N 27-31 Mean Corpuscular HGB Conc 32 g/dL N 31-36 Red Cell Distribution Width 14 % N 10.5-15 Platelet Count 309 10^3/uL N 150-450 Mean Platelet Volume 8 um3 N 7.4-10.4 Abs Neutrophils 4.6 10^3/uL N 1.5-7.7 Abs Lymphocytes 3.7 10^3/uL N 1.0-4.8 Abs Monocytes 0.6 10^3/uL N 0-0.8 Abs Eosinophils 0 10^3/uL N 0-0.6 Abs Basophils 0.1 10^3/uL N 0-0.2 Abs Nucleated RBC 0.02 10^3/uL N Granulocyte % 51.2 % N 38-83 Lymphocyte % 40.8 % N 25-47 Monocyte % 6.4 % N 1-9 Eosinophil % 0.5 % N 0-6 Basophil % 1.1 % N 0-2 Nucleated Red Blood Cells % 0.2 N Laboratory test 11/13/2015 [facility] Erythrocyte Sed 18 mm/Hr High 0-[address] [place] [address] [phone] C Reactive Protein 16.34 mg/L High < 5.00 9 Urinalysis Profile 11/11/2015 [facility] Urine Color Straw N [address] [place] [address] [phone] Urine Appearance Clear N Urine Specific [place] 1.008 Low 1.010-1.030 Urine pH 6.0 N 5-9 Urine Urobilinogen Negative N Negative Urine Ketones Negative N Negative Urine Protein Negative N Negative Urine Leukocytes Negative N Negative Urine Blood Negative N Negative Urine Nitrite Negative N Negative Urine Bilirubin Negative N Negative Urine Glucose Negative N Negative CBC Auto 11/11/2015 [facility] White Blood 12.2 10^3/uL High 3.5-10.[address] [place] [address] [phone] Red Blood Count 4.74 10^6/uL N 4.0-5.4 Hemoglobin 14.1 g/dL N 12.0-16.0 Hematocrit 42 % N 35-47 Mean Corpuscular Volume 89 fL N 80-97 Mean Corpuscular Hemoglobin 30 pg N 27-31 Mean Corpuscular HGB Conc 33 g/dL N 31-36 Red Cell Distribution Width 14 % N 10.5-15 Platelet Count 346 10^3/uL N 150-450 Mean Platelet Volume 7 um3 Low 7.4-10.4 Abs Neutrophils 7.5 10^3/uL N 1.5-7.7 Abs Lymphocytes 3.8 10^3/uL N 1.0-4.8 Abs Monocytes 0.7 10^3/uL N 0-0.8 Abs Eosinophils 0 10^3/uL N 0-0.6 Abs Basophils 0.1 10^3/uL N 0-0.2 Abs Nucleated RBC 0.01 10^3/uL N Granulocyte % 61.8 % N 38-83 Lymphocyte % 31.3 % N 25-47 Monocyte % 5.7 % N 1-9 Eosinophil % 0.1 % N 0-6 Basophil % 1.1 % N 0-2 Nucleated Red Blood Cells % 0.1 N Comp Metabolic Panel 11/11/2015 [facility] Sodium 138 mmol/L N 133-[address] [place] [address] [phone] Potassium 4.0 mmol/L N 3.5-5.0 Chloride 109 mmol/L N 101-111 Co2 Carbon Dioxide 20 mmol/L Low 22-32 Anion Gap 9 mmol/L N 2-11 Glucose 101 mg/dL High 70-100 Blood Urea Nitrogen 6 mg/dL N 6-24 Creatinine 0.60 mg/dL N 0.51-0.95 BUN/Creatinine Ratio 10.0 N 8-20 Calcium 9.2 mg/dL N 8.6-10.3 Total Protein 7.2 g/dL N 6.4-8.9 Albumin 4.4 g/dL N 3.2-5.2 Globulin 2.8 g/dL N 2-4 Albumin/Globulin Ratio 1.6 N 1-3 Total Bilirubin 0.40 mg/dL N 0.2-1.0 Alkaline Phosphatase 63 U/L N 34-104 Alt 21 U/L N 7-52 Ast 17 U/L N 13-39 Egfr Non- 117.4 N >60 Egfr 151.0 N >60 10 Laboratory test finding 11/11/2015 [facility] Lipase 11 U/L N 11.0-82.[address] [place] [address] [phone] C Reactive Protein 5.98 mg/L High < 5.00 11 Laboratory test 08/21/2015 [facility] Cytology SEE RESULT BELOW [address] [place] [address] [phone] Gardnerella/Yeast: Vaginal Dna SEE RESULT BELOW 13 GC/Chlamydia 08/21/2015 [facility] Chlamydia Negative N Negative Amplified Rna [address] [place] [address] [phone] Neisseria gonorrhoeae (GC) Rna Negative N Negative Laboratory test 08/21/2015 [facility] Trichomonas Negative N Negative [address] [address] [phone] Stool For Blood 07/14/2015 [facility] Miscellaneous Lab neg x3 CBC With 01/26/2010 [facility] White Blood Count 10.2 CUMM 4.8-10.8 Electronic Diff [address] [place] [address] [phone] Red Cell Count 4.24 CUMM 4.2-5.4 Hemoglobin 13.2 g/dL 12.0-16.0 Hematocrit 39 % 35-47 Mean Corpuscular Volume 91 um3 79-97 Mean Corpuscular Hemoglob 31 pg 27-31 Mean Corpuscular HGB Cone 34 g/dL 32-36 Redcell Distribution WDTH 13 % 10.5-15 Platelet Count 288 CUMM 150-450 Mean Platelet Volume 7.3 um3 Low 7.4-10.4 Gran % 60.9 % 38-83 Lymph % 31.1 % 25-47 Mononuclear % 6.8 % 1-9 Eosinophil % 0.7 % 0-6 Basophil % 0.5 % 0-2 Abs Lymphs 3.2 1.0-4.8 Abs Mononuclear 0.7 0-0.8 Absolute Neutrophil Count 6.2 1.5-7.7 Abs Eosinophils 0.1 0-0.6 Abs Basophils 0.1 0-0.2 Comp Metabolic Panel 01/26/2010 [facility] Sodium 140 mmol/L 135-145 [address] [place] [address] [phone] Potassium 4.0 mmol/L 3.5-5.0 Chloride 109 mmol/L 101-111 Co2 (Carbon Dioxide) 23.0 mmol/L 22-32 Anion Gap 8.0 mmol/L 2-11 15 Glucose 97 mg/dL 70-100 16 BUN 8 mg/dL 6-24 Creatinine 0.60 mg/dL 0.50-1.40 One Over Creatinine 1.60 BUN/Creatinine Ratio 13.3 8-20 Calcium 9.0 mg/dL 8.1-9.9 17 Total Protein 6.5 GM/DL 6.2-8.1 Albumin 3.8 GM/DL 3.6-5.4 Globulin 2.7 GM/DL 2-4 Albumin/Globulin Ratio 1.4 1-3 Bilirubin Total 0.6 mg/dL 0.4-1.5 18 Alkaline Phosphatase 52 U/L 30-110 Alt (SGPT) 16 U/L 14-54 Ast (Sgot) 15 U/L 12-42 eGFR Non- 130.5 > 60 eGFR 158.0 > 60 19 Lipid Profile 01/26/2010 [facility] Triglyceride 126 mg/dL 40 -200 (Trig/Chol/HDL) [address] [place] [address] [phone] Cholesterol 165 mg/dL Less Than 200 20 High Density Lipoprotein 30 mg/dL Low 40-60 21 Cholesterol/HDL Ratio 5.50 AVERAGE High 1-4.44 Low Density Lipoprotein 110 mg/dL High Less Than 100 22 Liver Function 01/26/2010 [facility] Bilirubin Direct 0.1 mg/dL 0.1-0.5 Panel [address] [place] [address] [phone] Indirect Bilirubin 0.5 mg/dL 0.3-1.0 23 Urinalysis W/Microscopic 01/04/2010 [facility] Ua Color YELLOW Yellow [address] [place] [address] [phone] Appearance-Urine CLEAR Clear Specific Marshall-Ur 1.021 1.010-1.030 Esterase-Urine NEGATIVE Negative Nitrite NEGATIVE Negative Ogxowpalrxwh-Jm-DUK NEGATIVE Negative Protein-Urine NEGATIVE Negative PH-Urine 6.5 5-9 Blood-Urine 3+ Abnormal Negative Ketones-Urine NEGATIVE Negative Bilirubin-Ur NEGATIVE Negative Glucose-Urine NEGATIVE Negative WBC-Urine 1-3 0-5 RBC-Urine 25-30 Abnormal 0-2 Epith Cells-Ur MANY None Bacteria-Urine 1+ None Amorphous Sed-U TRACE None Urine Culture & 01/04/2010 [facility] Urine Culture NG [address] [address] [phone] 1 SEE RESULT BELOW Name: AMANDA LAI : [address]: Ene Chairez MD Acct: [id number] Unit: [id number] AGE: 32 Location: [facility] Re03/22/18 SEX: F Status: REG REF SPEC: [id number] MAGUE: 03/22/18-1102 [facility] DR: Ene Chairez MD REQ: [id number] RECD: 03/22/187442 STATUS: SOUT _ ORDERED: TP IMAGE ANALYS, HPV/Thin Prep COMMENTS: [id number] Negative for Intraepithelial lesion or Malignancy Date Time Test Result Flag (u) Normal Range 03/22/18 1103 @ HPV RNA Negative Negative @ @ The high-risk HPV types detected by the assay include: 16, @ 18, 31, 33, 35, 39, 45, 51, 52, 56, 58, 59, 66, and 68. A. Ectocervical/Endocervical Specimen Adequacy: Satisfactory of evaluation Transformation zone component identified Patient Information: HPV: High risk HPV RNA testing regardless of pap results. Actual Specimen Date: 01/26/18 ?: N Post Menopausal?: N Hysterectomy?: N Signed by and Reported on: PING Joseph(ASC) [id number] This Pap test was evaluated with the assistance of the Fanhuan.comPrep Test Imaging System. Due to cytologic findings at the change management coordinator microscope, comprehensive manual rescreening by a Hydraulic Press Tender may be required. The Pap Smear is a screening test designed to aid in the detection of premalignant and malignant conditions of the uterine cervix. It is not a diagnostic procedure and should not be used as the sole means of detecting cervical cancer. Both false- positive and false- negative reports do occur. Depending on your risk status, a Pap smear should be obtained and evaluated every 1-3 years. END OF REPORT DEPARTMENT OF PATHOLOGY, [address] [place] [address] Rey Perez M.D. Director [facility] # [id number] 2 Because ethnic data is not always readily available, this report includes an eGFR for both -Americans and non- Americans. The National Kidney Disease Education Program (NKDEP) does not endorse the use of the MDRD equation for patients that are not between the ages of 18 and 70, are , have extremes of body size, muscle mass, or nutritional status, or are non- or non-. According to the National Kidney Foundation, irrespective of diagnosis, the stage of the disease is based on the level of kidney function: Stage Description GFR(mL/min/1.73 m(2)) 1 Kidney damage with normal or decreased GFR 90 2 Kidney damage with mild decrease in GFR 60-89 3 Moderate decrease in GFR 30-59 4 Severe decrease in GFR 15-29 5 Kidney failure <15 (or dialysis) 3 Acute inflammation: >10.00 4 Because ethnic data is not always readily available, this report includes an eGFR for both -Americans and non- Americans. The National Kidney Disease Education Program (NKDEP) does not endorse the use of the MDRD equation for patients that are not between the ages of 18 and 70, are , have extremes of body size, muscle mass, or nutritional status, or are non- or non-. According to the National Kidney Foundation, irrespective of diagnosis, the stage of the disease is based on the level of kidney function: Stage Description GFR(mL/min/1.73 m(2)) 1 Kidney damage with normal or decreased GFR 90 2 Kidney damage with mild decrease in GFR 60-89 3 Moderate decrease in GFR 30-59 4 Severe decrease in GFR 15-29 5 Kidney failure <15 (or dialysis) 5 If is still suspected, please repeat test after 48 to 72 hours. This test detects intact HCG only and is indicated for the early detection of . 6 Aircraft Skin Burnisher: [id number] 8 SEE RESULT BELOW Name: AMANDA LAI : [address]: Kai Chowdhury MD Acct: [id number] Unit: [id number] AGE: 30 Location: [facility] Re02/18/16 SEX: F Status: DEP ER SPEC: [id number] MAGUE: 02/18/16 [facility] DR: Kai Chowdhury MD REQ: [id number] RECD: 02/19/16 STATUS: KAREN TANG DR: Ciera Alexandre MD _ SOURCE: MISC SOURC SPDESC:FOREHEAD ORDERED: Culture Stain COMMENTS: [id number] Procedure Result Reported Site Wound/Misc Gram Stain Final 02/19/16- 1135 ML 1+ Epithelial Cells No Neutrophils Observed No Organisms Seen Wound/Misc Culture Final 02/21/16- 0924 ML Organism 1 NORMAL CARINA Quantity 1+ * ML - MAIN LAB ([facility]) . END OF REPORT * ML=Testing performed at Main Lab DEPARTMENT OF PATHOLOGY, [address] [place] [address] Rey Perez M.D. Director [facility] # [id number] 9 Acute inflammation: >10.00 10 Because ethnic data is not always readily available, this report includes an eGFR for both -Americans and non- Americans. The National Kidney Disease Education Program (NKDEP) does not endorse the use of the MDRD equation for patients that are not between the ages of 18 and 70, are , have extremes of body size, muscle mass, or nutritional status, or are non- or non-. According to the National Kidney Foundation, irrespective of diagnosis, the stage of the disease is based on the level of kidney function: Stage Description GFR(mL/min/1.73 m(2)) 1 Kidney damage with normal or decreased GFR 90 2 Kidney damage with mild decrease in GFR 60-89 3 Moderate decrease in GFR 30-59 4 Severe decrease in GFR 15-29 5 Kidney failure <15 (or dialysis) 11 Acute inflammation: >10.00 12 SEE RESULT BELOW Name: AMANDA LAI : [address]: Ciera Alexandre MD Acct: [id number] Unit: [id number] AGE: 30 Location: [facility] Re08/21/15 SEX: F Status: REG REF SPEC: [id number] MAGUE: 08/21/15-[address]: Ciera Alexandre MD REQ: [id number] RECD: 08/21/15 STATUS: SOUT _ ORDERED: IMAGE ANALYSIS FINAL DIAGNOSIS Negative for Intraepithelial lesion or Malignancy Fungal organisms morphologically consistent with Nithya species A. Ectocervical/Endocervical Specimen Adequacy: Satisfactory of evaluation Transformation zone component identified Patient Information: HPV: Thin Layer Pap Test w/reflex to high risk HPV RNA testing when ASCUS HPV 16/18 Genotype for HPV pos Actual Specimen Date: 08/21/15 Post Menopausal?: N Previous Abnormal Pap Smears?:N If Yes, enter Diagnosis: irregular menses, on Depo Signed (signature on file) PING Joseph(ASCP) [id number] This Pap test was evaluated with the assistance of the ThinPrep Test Imaging System. Due to cytologic findings at the change management coordinator microscope, comprehensive manual rescreening by a Hydraulic Press Tender may be required. The Pap Smear is a screening test designed to aid in the detection of premalignant and malignant conditions of the uterine cervix. It is not a diagnostic procedure and should not be used as the sole means of detecting cervical cancer. Both false- positive and false- negative reports do occur. Depending on your risk status, a Pap smear should be obtained and evaluated every 1-3 years. END OF REPORT * ML=Testing performed at Main Lab DEPARTMENT OF PATHOLOGY, [address] [place] [address] Rey Perez M.D. Director [facility] # [id number] 13 SEE RESULT BELOW Name: AMANDA LAI : [address]: Ciera Alexandre MD Acct: [id number] Unit: [id number] AGE: 30 Location: [facility] Re08/21/15 SEX: F Status: REG REF SPEC: [id number] MAGUE: 08/21/15-[address]: Ciera Alexandre MD REQ: [id number] RECD: 08/21/15 STATUS: COMP _ SOURCE: VAGINAL SPDESC: ORDERED: Joanie,Yeast DNA Procedure Result Reported Site Gardnerella/Yeast: Vaginal DNA Final 08/21/15- 2123 ML Organism 1 Negative Gardnerella Organism 2 POSITIVE NITHYA The presence of G. vaginalis, although suggestive, is not diagnostic for bacterial vaginosis. Results should be interpreted in conjuction with other clinical and laboratory data available. Women with vaginal discharge should be evaluated for risk factors of cervicitis and pelvic inflammatory disease, toxic shock syndrome (S.aureus), and if present, evaluated for organisms not included in this assay such as N. gonorrhoeae, C. trachomatis, Mobiluncus, Mycoplasma and/or Prevotella. Mixed infections may occur. The performance of this test on patient specimens collected during or immediately after antimicrobial therapy is unknown. The presence or absence of Nithya species, or G. vaginalis cannot be used as a test for therapeutic success or failure. * ML - MAIN LAB ([facility]) . END OF REPORT * ML=Testing performed at Main Lab DEPARTMENT OF PATHOLOGY, [address] [place] [address] Rey Perez M.D. Director [facility] # [id number] 14 GC/Chlamydia Source?: Thin Prep Trichomonas Source: Thin Prep 15 Anion gap measurement may be of limited value in the presence of any alkalosis, especially in a combined acid base disorder. . 16 Note change in reference range as of 02/14/08. The change was based on recommendations from the [place] [employer]. 17 Please note change in reference range effective 07 . 18 A metabolite of Naproxen, O-desmethylnaproxen, has been shown to interfere with the Jendrassik-Gustavo method for measuring total bilirubin. Samples from patients who have taken Naproxen have shown spurious elevation in total bilirubin levels. 19 Because ethnic data is not always readily available, this report includes an eGFR for both -Americans and non- Americans. The National Kidney Disease Education Program (NKDEP) does not endorse the use of the MDRD equation for patients that are not between the ages of 18 and 70, are , have extremes of body size, muscle mass, or nutritional status, or are non- or non-. According to the National Kidney Foundation, irrespective of diagnosis, the stage of the disease is based on the level of kidney function: Stage Description GFR(mL/min/1.73 m(2)) 1 Kidney damage with normal or decreased GFR 90 2 Kidney damage with mild decrease in GFR 60-89 3 Moderate decrease in GFR 30-59 4 Severe decrease in GFR 15-29 5 Kidney failure <15 (or dialysis) 20 CHOLESTEROL INTERPRETATION: Desirable: Less than 200 MG/DL Borderline-High Risk: 200-239 MG/DL High-Risk: 240 MG/DL and over 21 HDL INTERPRETATION: Undesirable: High Risk: Less than 40 MG/DL Desirable: Low Risk: Greater than 60 MG/DL 22 LDL INTERPRETATION: Low Risk Optimal Level: LDL Less than 100 MG/DL Near or Above Optimal: LDL 100-129 MG/DL Borderline High Risk: LDL 130-159 MG/DL High Risk: LDL 160-189 MG/DL Very High Risk: LDL Greater than 189 MG/DL 23 Please note updated reference range, effective 01/14/10 24 FINAL: NO GROWTH DAY 2 (<1,000 CFU/mL) Procedures Date Code Description Status 08/08/2016 02709 Anoscopy Completed 10/16/2002 29000 EKG, Interpretation Only Completed Encounters Type Date Location Provider Dx Diagnosis Office Visit 04/23/2018 [facility] Internal Nighat Parekh, L08.9 Local infection of 3:20p Medicine - N.P. the skin and [place] subcutaneous tissue, unsp Office Visit 03/22/2018 [facility] Ene Chairez, Z01.411 Encntr for import export agent exam 10:00a [facility] (general) (routine) w abnormal findings A60.04 Herpesviral vulvovaginitis L30.4 Erythema intertrigo Z11.51 Encounter for screening for human papillomavirus (HPV) Office Visit 03/15/2018 2:40p [facility] Internal Adair Delano, ADMISSIONS ADVISOR R25.2 Cramp and Medicine - spasm [place] R20.2 Paresthesia of skin M54.5 Low back pain Z13.220 Encounter for screening for lipoid disorders Office Visit 01/19/2018 3:40p [facility] Internal Adair Wick, R21 Rash and other Medicine - ADMISSIONS ADVISOR nonspecific skin [place] eruption K08.89 Other specified disorders of teeth and supporting structures B37.2 Candidiasis of skin and nail Office Visit 12/29/2017 3:20p [facility] Internal Charisma M54.9 Dorsalgia, Karyna Padron M.D. unspecified [place] R19.7 Diarrhea, unspecified Office Visit 11/02/2017 1:40p [facility] Internal Adair Wick, R10.10 Upper abdominal Medicine - ADMISSIONS ADVISOR pain, unspecified [place] R79.9 Abnormal finding of blood chemistry, unspecified Office Visit 09/01/2017 1:00p [facility] Internal Nighat Parekh, S93.401A Sprain of Medicine - N.P. unspecified [place] ligament of right ankle, init encntr H91.92 Unspecified hearing loss, left ear H81.10 Benign paroxysmal vertigo, unspecified ear Office Visit 07/05/2017 2:20p [facility] Adair Wick, R19.7 Diarrhea, Medicine - ADMISSIONS ADVISOR unspecified [place] R10.9 Unspecified abdominal pain R10.812 Left upper quadrant abdominal tenderness R06.02 Shortness of breath Z30.09 Encounter for ot general coun and advice on contraception B37.9 Candidiasis, unspecified Office Visit 05/05/2017 [facility] Internal Nighat Parekh, K21.9 Gastro- esophageal 2:00p Medicine - N.P. reflux disease without [place] esophagitis H92.02 Otalgia, left ear Office Visit 04/28/2017 3:40p [facility] Adair Wick NP L70.0 Acne vulgaris Medicine - [place] H92.02 Otalgia, left ear Z23 Encounter for immunization Office Visit 12/05/2016 1:00p [facility] Adair Wick, K08.89 Other specified Medicine - ADMISSIONS ADVISOR disorders of [place] teeth and supporting structures B37.0 Candidal stomatitis R05 Cough J01.90 Acute sinusitis, unspecified Office Visit 10/13/2016 11:40a [facility] Adair Wick, J01.90 Acute sinusitis, Medicine - ADMISSIONS ADVISOR unspecified [place] L60.0 Ingrowing nail Office Visit 09/14/2016 11:00a [facility] Adair Wick, R19.7 Diarrhea, Medicine - ADMISSIONS ADVISOR unspecified [place] R11.0 Nausea Office Visit 08/04/2016 2:30p [facility]oldan, L72.11 Pilar cyst Of [facility] , FACS R51 Headache M26.602 Left temporomandibular joint disorder, unspecified Office Visit 07/22/2016 2:40p [facility] Adair Wick, J06.9 Acute upper Medicine - ADMISSIONS ADVISOR respiratory [place] infection, unspecified Office Visit 07/15/2016 1:40p [facility] Adair Wick, K62.5 Hemorrhage of anus Medicine - ADMISSIONS ADVISOR and rectum [place] K59.00 Constipation, unspecified L72.3 Sebaceous cyst Office Visit 05/09/2016 1:40p [facility] Internal Medicine - Adair Wick NP R04.0 Epistaxis [place] R55 Syncope and collapse M79.661 Pain in right lower leg J06.9 Acute upper respiratory infection, unspecified Office Visit 04/14/2016 2:00p [facility] Cristian Salcedo J06.9 Acute upper Medicine - Loraine Uriarte respiratory [place] infection, unspecified Office Visit 11/13/2015 2:00p [facility] Ciera Alexandre, K58.0 Irritable bowel Medicine - Loraine syndrome with [place] diarrhea R11.0 Nausea R79.9 Abnormal finding of blood chemistry, unspecified N20.0 Calculus of kidney M79.661 Pain in right lower leg M79.671 Pain in right foot Office Visit 10/08/2015 1:40p [facility] Ciera Alexandre, K64.9 Unspecified Medicine - M.D. hemorrhoids [place] L72.3 Sebaceous cyst J32.9 Chronic sinusitis, unspecified K58.0 Irritable bowel syndrome with diarrhea Office Visit 08/21/2015 1:40p [facility] Ciera Alexandre, Z12.31 Encntr screen Medicine - M.Teresa mammogram for [place] malignant neoplasm of breast N92.6 Irregular menstruation, unspecified Z01.419 Encntr for import export agent exam (general) (routine) w/o abn findings Office Visit 07/21/2015 4:20p [facility] Internal Cristian Salcedo J20.9 Acute bronchitis, Karyna Uriarte M.D. unspecified [place] Office Visit 07/14/2015 2:40p [facility] Internal Nurse Visit A R19.5 Other fecal Medicine - abnormalities [place] Office Visit 07/08/2015 3:40p [facility] Internal Cristian Salcedo J06.9 Acute upper Medicine - Loraine Uriarte respiratory [place] infection, unspecified Office Visit 07/02/2015 3:00p [facility] Internal Adair Wick, M79.604 Pain in right leg Medicine - ADMISSIONS ADVISOR [place] R19.5 Other fecal abnormalities R53.83 Other fatigue Office Visit 04/28/2011 3:00p DO Not Use Pricing Coordinator Cristian Salcedo 493.00 Asthma Extrinsic AT Kym Uriarte M.D. Unspecified Office Visit 03/28/2011 2:45p DO Not Use Pricing Coordinator Patricia 719.46 Pain Joint Lower AT [facility] Leg 477.9 Rhinitis Allergic Cause Unspec V04.81 Need For Prophylactic Vaccination & Inoculation/Influenza Office Visit 12/09/2010 DO Not Use Patricia E885.9 Fall From Other 4:15p Pricing Coordinator AT [facility] Slipping,Tripping, Or [facility] Stumbling 729.5 Pain In Limb Office Visit 06/09/2010 1:40p DO Not Use Pricing Coordinator Luiz Jauregui, 719.47 Pain Joint AT [facility] 493.00 Asthma Extrinsic Unspecified 345.80 Epilepsy Other Forms Recurrent Seizures W/O Intractable Office Visit 01/04/2010 4:00p DO Not Use Pricing Coordinator Sivananda, 599.0 UTI Urinary AT [facility] MD Gunner Tract Infection Site Not Spec V72.41 Test Negative Office Visit 08/25/2009 3:40p DO Not Use Pricing Coordinator Stevanovic, 493.00 Asthma Extrinsic AT Kym Muñoz M.D. 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
[2018-06-07] MEDS ORDERED: Clindamycin CAP* 150 MG PO ONE (21:43)
[2018-06-07] MEDS ORDERED: Lidocaine 2% VISCOUS* 15 ML UDC PO ONE (21:44)
[2018-06-07] MEDS ORDERED: Ketorolac TAB * 10 MG TAB PO ONE (21:45)
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
[2018-06-07 22:08] VITALS: BP 134/76
== END 2018-06-07 22:07 | disposition home or self-care (01) ==
LOC: ED 19:35
DX: K08.89 Other specified disorders of teeth and supporting structures (principal); F17.210 Nicotine dependence, cigarettes, uncomplicated; Z88.0 Allergy status to penicillin; Z91.040 Latex allergy status
CPT/HCPCS: 99283; A9270-GY

== ENCOUNTER 2018-10-08 17:56 | Emergency (ER) | payer MEDICARE, MEDICAID ==
[2018-10-08 19:23] LABS: Rapid Strep Molecular POSITIVE (Negative)
[2018-10-08] MEDS ORDERED: Azithromycin TAB* 250 MG PO ONE (19:50)
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
[2018-10-08 21:21] VITALS: BP 136/93
== END 2018-10-08 21:18 | disposition home or self-care (01) ==
LOC: ED 17:56
DX: J02.0 Streptococcal pharyngitis (principal); J02.9 Acute pharyngitis, unspecified; Z88.0 Allergy status to penicillin; F17.210 Nicotine dependence, cigarettes, uncomplicated
CPT/HCPCS: 87651; 99282; A9270-GY

== ENCOUNTER 2018-11-11 14:14 | Emergency (ER) | payer MEDICARE, MEDICAID ==
[2018-11-11] MEDS ORDERED: Ketorolac INJ* 60 MG/2 ML VIAL IM ONE (15:22)
[2018-11-11] MEDS ORDERED: Clindamycin CAP* 150 MG PO ONE (15:22)
[2018-11-11 15:43] VITALS: BP 132/88
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
== END 2018-11-11 15:41 | disposition home or self-care (01) ==
LOC: ED 14:14
DX: K04.7 Periapical abscess without sinus (principal); G43.909 Migraine, unspecified, not intractable, without status migrainosus; F17.290 Nicotine dependence, other tobacco product, uncomplicated; J45.909 Unspecified asthma, uncomplicated; F32.9 Major depressive disorder, single episode, unspecified
CPT/HCPCS: 96372; 99282; A9270-GY; J1885

== ENCOUNTER 2019-03-18 16:31 | Emergency (ER) | payer MEDICARE, MEDICAID ==
--- OUTSIDE RECORDS SUMMARY | 2019-03-18 16:37 | XMS REPORT | Continuity of Care Document ---
:1985 External Reference #:[id number] Author Name Adair Wick NP (transmitted by agent of provider Jessica Herr) Address [address] , [address] Unavailable [place] [id number] Care Team Providers Name Role Phone Earline Esparza MD - Psychiatry Care Team Information [employer] Engineer Kiki Betancourt MD - Internal Medicine Care Team Information [employer] Engineer Problems Active Problems Provider Date Asthma Adair Wick NP Onset: 07/05/2015 Schizoaffective disorder, bipolar type Adair Wick NP Onset: 07/05/2015 Borderline personality disorder Adair Wick NP Onset: 07/05/2015 Social History Type Date Description Comments Sex Unknown Tobacco Use Start: Unknown Former Cigarette Quit Feb 2016; End: Unknown Smoker previously max 1ppd, began age 16 Smoking Status Reviewed: 02/28/19 Former Cigarette Quit Feb 2016; Smoker previously max 1ppd, began age 16 ETOH Use Denies alcohol use Tobacco Use Start: Unknown Patient is a current pt smokes E- Cig smoker, smokes every day Recreational Drug Use Former Drug User Exercise Type/Frequency Exercises regularly Allergies, Adverse Reactions, Alerts Active Allergies Reaction Severity Comments Date [place] 07/29/2009 Penicillins 07/29/2009 Geodon 07/29/2009 Restoril fainting 05/09/2016 Medications Active Medications SIG Qnty Indications Ordering Date Provider Clindamycin Phosphate Apply thin layer 60ml L70.0 Adair Wick NP 2018 to affected areas 1% Lotion twice daily Docqlace Take One Capsule 90caps Adair Wick NP 09/09/2018 100mg Capsules By Mouth Up To 3 Times A Day as Needed For Constipation. Lyrica take one capsule 30caps Adair Wick NP 05/28/2018 75mg Capsules by mouth once daily *maximum of one capsule daily* Valtrex one tablet twice a 30tabs A60.04 Ene Chairez, 03/22/2018 500mg Tablets day x 3 days as MD needed exacerbation Nystatin after cleansing 60units L30.4 Adair Wick NP 03/22/2018 [id number] and drying Powder affected area, apply powder liberally every 8 hours Levocetirizine Take 1 Tablet By 30tabs Adair Wick NP 02/15/2018 Dihydrochloride Mouth AT Bedtime 5mg Tablets Proair Respiclick 2 puffs four times 1units J45.20 Adair Wick NP 2017 a day as needed 108(90Base) mcg/Act Aerosol Triamcinolone apply twice daily 45gm R21 Adair Wick NP 01/19/2018 Acetonide to the affected 0.5% Cream area Dicyclomine HCL one capsule 2 60caps Adair Wick NP 12/04/2017 10mg times daily as Capsules needed Proctosol HC apply thin film to 28.350gm K64.9 Adair Wick NP 11/05/2017 2.5% Cream affected area 2-4 times daily Probiotic 1 by mouth every 30caps R19.7 Adair Wick NP 07/05/2017 Capsules day Omeprazole Take One Capsule 30caps Charisma 06/27/2017 20mg By Mouth Once Cotton, M.D. Capsules DR Daily Albuterol Sulfate use 1 vial via 75ml R05 Adair Wick NP 12/05/2016 nebulizer 4 times (2.5mg/3ML) 0.083% daily as needed dx Nebulizer r05 Pepto-Bismol 2 tablets every 4 45tabs R19.7 Adair Wick NP 09/14/2016 262mg hours as needed Tablets Metamucil Smooth per package 1units K59.00 Adair Wick NP 07/15/2016 Texture instructions 28.3% Powder Saline Mist [place] spray in each 45ml R04.0 Adair Wick NP 05/09/2016 0.65% nostril 6-8 times Solution daily Miralax 17 gm every day 510units K58.0 Adair Wick NP 10/08/2015 [id number] Powder mixed w/ 8 oz water/juice Fluticasone 2 sprays each 1units J32.9 Adair Wick NP 10/08/2015 Propionate nostril everyday 50mcg/Act Suspension Knee Adair Wick NP 07/02/2015 Support/Elastic/Sheer /Large Misc Prilosec OTC 1 by mouth every 30tabs K21.9 Adair Wick NP 09/10/[address] [place] Right Arm Unknown Cyclobenzaprine HCL Take One Tablet By 90tabs Adair Wick NP Mouth Three Times 10mg Tablets Daily as Needed For Spasms Sumatriptan Succinate Take One Tablet By 9tabs Adair Wick NP Mouth Once as 100mg Tablets Needed For Migraine *May Not Exceed 200MG In Twenty Four Hour Period* Montelukast Sodium Take One Tablet By 30tabs Adair Wick NP 10mg Mouth Every Night Tablets AT Bedtime Meloxicam take one tab by 60tabs Adair Wick NP 7.5mg Tablets mouth two times daily as needed for pain Escitalopram Oxalate Unknown 10mg Tablets Olanzapine Earline Esparza, 20mg Tablets Dispers Vyvanse once a day Earline Esparza, 20mg Capsules MD Melatonin 2 by mouth every Unknown Tablets night at bedtime Dispers Ondansetron dissolve 1 tab 10tabs Cristian Salcedo 4mg Tablets under tongue up to Loraine Uriarte Dispers twice a day as needed for nausea Advair HFA inhale two puffs 8units Charisma 45-21mcg/Act twice a day by Loraine Padron Aerosol ihnalation route, kept on person [id number] 1 po daily Unknown Tablets Acyclovir apply to affected 30gm Adair Wick NP 5% Ointment areas by topical route every three hours six times per day. History Medications Clindamycin HCL one capsule by 21caps K08.89 Adair Wick NP 12/07/2018 - 300mg mouth every 8 12/11/2018 Capsules hours for 7 days Fluconazole one by mouth october 2tabs Adair Wick NP 11/16/2018 - 150mg repeat in 3 days 11/22/2018 Tablets as needed Immunizations CPT Code Status Date Vaccine Reaction Lot # [id number] Given 07/26/2018 Influenza Virus Vaccine, No immediate reaction [id number] Quadrivalent, Split, Preservative Free 80198 Given 04/28/2017 Influenza Virus Vaccine, No immediate [id number] Quadrivalent, Split, reaction...jh Preservative Free [id number] Given 03/28/2011 Influenza Virus 3Yrs & Over [id number] Vital Signs Date Vital Result Comment 02/28/2019 2:46pm Height 68 inches 5'8" Weight 232.38 lb Heart Rate 121 /min BP Systolic 126 mmHg BP Diastolic 84 mmHg Body Temperature 98.0 F O2 % BldC Oximetry 97 % BMI (Body Mass Index) 35.3 kg/m2 01/28/2019 5:00pm Height 68 inches 5'8" Weight 227.00 lb Heart Rate 101 /min BP Systolic Sitting 132 mmHg BP Diastolic Sitting 93 mmHg BMI (Body Mass Index) 34.5 kg/m2 Results Test Date Facility Test Result H/L Range Note Laboratory test 10/08/2018 [facility] Rapid Strep POSITIVE Abnormal Negative [address] [place] [address] [phone] 1 Gas Examiner: [id number] Procedures Description No Information Available Medical Devices Description No Information Available Encounters Type Date Location Provider Dx Diagnosis Office Visit 01/28/2019 [facility] Cristian Salcedo G43.009 Migraine w/o aura, 4:20p [facility] Loraine Uriarte not intractable, w/o status migrainosus Office Visit 12/12/2018 [facility] Adair Wick NP S16.1xxA Strain of muscle, 4:00p [facility] fascia and tendon at neck level, init G43.009 Migraine w/o aura, not intractable, w/o status migrainosus H81.10 Benign paroxysmal vertigo, unspecified ear Office Visit 11/16/2018 2:20p [facility] Adair Wick, K08.89 Other specified Medicine - [facility] PNP disorders of teeth and supporting structures R22.42 Localized swelling, mass and lump, left lower limb Assessments Date Code Description Provider 02/28/2019 L70.0 Acne vulgaris Adair Wick NP 02/28/2019 R21 Rash and other nonspecific skin eruption Adair Wick NP 02/28/2019 G43.009 Migraine without aura, not intractable, Adair Wick NP without status migra 01/28/2019 G43.009 Migraine without aura, not intractable, Cristian Uriarte M.D. without status migra 12/12/2018 S16.1xxA Strain of muscle, fascia and tendon at Adair Wick NP neck level, initial e 12/12/2018 G43.009 Migraine without aura, not intractable, Adair Wick NP without status migra 12/12/2018 H81.10 Benign paroxysmal vertigo, unspecified ear Adair Wick NP 11/16/2018 K08.89 Other specified disorders of teeth and Adair Wick NP supporting structures 11/16/2018 R22.42 Localized swelling, mass and lump, left Adair Wick NP lower limb Plan of Treatment Future Appointment(s):07/03/2019 10:00 am - Jake Aaron M.D. at [facility]02/28/2019 - Adair Wick NPL70.0 Acne vulgarisNew Medication:Clindamycin Phosphate 1 % - Apply thin layer to affected areas twice dailyComments:Continue to wash your face twice dailyI have prescribed the topical antibiotic.R21 Rash and other nonspecific skin eruptionComments: Continue taking the levocetirizine.you can use the hydroxyzine as needed for itching. You can apply the triamcinolone to the affected areas twice daily. Please have the bloodwork done that was ordered in November.Follow up:Print lab slip for pt. from 12/12 Please check into referral to [facility] that was submitted in November.G43.009 Migraine without aura, not intractable, without status migraComments:Continue using the Sumatriptan as needed.Restart the magnesium supplement.Keep your appointment withneurology that is upcoming. Functional Status Description No Information Available Mental Status Description No Information Available Referrals Refer to Reason for Referral Status Appt Date Ida Zarco MD Sent 07/03/2019 [address] [place] [address] [place] [address] [phone] [facility] Need to fax their referral form to Sent [phone] Refaxed referral 02/28 and given copy to pt [address] [place] [address] [phone]
[2019-03-18 16:51] VITALS: BP 127/81
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
== END 2019-03-18 17:35 | disposition home or self-care (01) ==
LOC: UCEAST 16:31
DX: L03.211 Cellulitis of face (principal); K21.9 Gastro-esophageal reflux disease without esophagitis; F17.210 Nicotine dependence, cigarettes, uncomplicated; Z88.0 Allergy status to penicillin; Z91.040 Latex allergy status
CPT/HCPCS: 99212; G0463

== ENCOUNTER 2019-04-20 13:40 | Emergency (ER) | payer MEDICARE, MEDICAID ==
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
[2019-04-20] MEDS ORDERED: Ondansetron ODT TAB* 4 MG PO ONE (14:11)
[2019-04-20] MEDS ORDERED: Morphine 4 MG/ML VIAL (1 ml) 4 MG/ML VIAL IV ONE (14:11)
[2019-04-20 14:39] LABS: ABS Lymphocytes 2.6 10^3/ul (1.0-4.8); ABS Monocytes 0.5 10^3/ul (0-0.8); Eosinophil % 0.9 %; Hematocrit 42 % (35-47); Hemoglobin 14.1 g/dL (12.0-16.0); Mean Corpuscular HGB Conc 33 g/dL (31-36); Mean Corpuscular Hemoglobin 30 pg (27-31); Mean Corpuscular Volume 89 fL (80-97); Mean Platelet Volume 7.1 fL (7.4-10.4); Nucleated Red Blood Cells % 0.1; Platelet Count 299 10^3/uL (150-450); Red Blood Count 4.75 10^6 /uL (3.70-4.87); Red Cell Distribution Width 14 % (10-15); White Blood Count 5.2 10^3/uL (3.5-10.8)
[2019-04-20 14:51] LABS: Urine Appearance Clear; Urine Bilirubin Negative (Negative); Urine Blood Negative (Negative); Urine Color Yellow; Urine Glucose 1+(50 mg/dL) (Negative); Urine Ketones Negative (Negative); Urine Nitrite Negative (Negative); Urine Protein Negative (Negative); Urine Urobilinogen Negative (Negative)
--- OUTSIDE RECORDS SUMMARY | 2019-04-20 14:53 | XMS REPORT | Continuity of Care Document ---
:1985 External Reference #:[id number] Author Name Adair Wick NP (transmitted by agent of provider Minda Isabel) Address [address] [facility], [place] [address] Care Team Providers Name Role Phone Earline Esparza MD - Psychiatry Care Team Information Desktop Support Associate [phone] Kiki Betancourt MD - Internal Medicine Care Team Information Desktop Support Associate [phone] Problems Active Problems Provider Date Asthma Adair Wick NP Onset: 07/05/2015 Schizoaffective disorder, bipolar type Adair Wick NP Onset: 07/05/2015 Borderline personality disorder Adair Wick NP Onset: 07/05/2015 Social History Type Date Description Comments Sex Unknown Tobacco Use Start: Unknown Former Cigarette Quit Feb 2016; End: Unknown Smoker previously max 1ppd, began age 16 Smoking Status Reviewed: 04/17/19 Former Cigarette Quit Feb 2016; Smoker previously max 1ppd, began age 16 ETOH Use Denies alcohol use Tobacco Use Start: Unknown Patient is a current pt smokes E- Cig smoker, smokes every day Recreational Drug Use Former Drug User Exercise Type/Frequency Exercises regularly Allergies, Adverse Reactions, Alerts Active Allergies Reaction Severity Comments Date [place] 07/29/2009 Penicillins 07/29/2009 Geodon 07/29/2009 Restoril fainting 05/09/2016 Medications Active Medications SIG Qnty Indications Ordering Date Provider Magnesium Oxide 1 by mouth every 30tabs G43.009 Adair Wick NP 04/17/2019 day 400(240Mg) mg Tablets Doxycycline 1 by mouth twice a 20tabs J01.90 Adair Wick NP 04/17/2019 Monohydrate day 100mg Tablets Mupirocin apply twice daily 66gm H60.12 Adair Wick NP 04/17/2019 2% Ointment Probiotic & 1 by mouth twice a 60caps R19.7 Adair Wick NP 04/04/2019 Acidophilus Formula day Extra Strength Capsules Clindamycin Phosphate Apply thin layer 60ml L70.0 [...] cleansing 60units L30.4 Adair Wick NP 03/22/2018 [id number]/GM and drying Powder affected area, apply powder [...] 2.5% Cream affected area 2-4 times daily Omeprazole take one capsule 30caps Adair Wick NP 06/27/2017 20mg by mouth once Capsules DR daily Albuterol Sulfate use 1 vial via 75ml R05 Adair Wick NP 12/05/2016 nebulizer 4 times (2.5mg/3ML) 0.083% daily as needed dx Nebulizer r05 Pepto-Bismol 2 tablets every 4 45tabs R19.7 Adair Wick NP 09/14/2016 262mg hours as needed Tablets Metamucil Smooth per package 1units K59.00 Adair Wick NP 07/15/2016 Texture instructions 28.3% Powder Saline Mist [place] spray in each 45ml R04.0 Adair Wick [...] DR Arango Right Arm Unknown Cyclobenzaprine HCL take one tablet by 90tabs Adair Wick NP mouth three times 10mg Tablets daily as needed for spasms Sumatriptan Succinate take one tablet by 9tabs Adair Wick NP mouth once as 100mg Tablets needed for migraine *may not exceed 200mg in twenty four hour period* Montelukast Sodium Take One Tablet By 30tabs Adair Wick NP 10mg Mouth Every Night Tablets AT Bedtime Meloxicam take one tab by 60tabs Adair Wick NP 7.5mg Tablets mouth two times daily as needed for pain Escitalopram Oxalate Unknown 10mg Tablets Olanzapine Earline Esparza, 20mg Tablets MD Dispers Vyvanse once a day Earline Esparza, 20mg Capsules MD Melatonin 2 by mouth every Unknown Tablets night at bedtime Dispers Ondansetron dissolve 1 tab 10tabs Adair Wick NP 4mg Tablets under tongue up to Dispers twice a day as needed for nausea Advair HFA inhale two puffs 8units Charisma 45-21mcg/Act twice a day by Loraine Padron Aerosol ihnalation route, kept on person [id number]-[id number]-Upef-D 1 po daily Unknown Tablets Acyclovir apply to affected 30gm Adair Wick NP 5% Ointment areas by topical route every three hours six times per day. History Medications Clindamycin HCL one capsule by Keturahcaps K08.89 Adair Wick NP 12/07/2018 - 300mg mouth every 8 12/11/2018 Capsules hours for 7 days Fluconazole one by mouth october 2tabs Adair Wick NP 11/16/2018 - 150mg repeat in 3 days 11/22/2018 Tablets as needed Immunizations CPT Code Status Date Vaccine Reaction Lot # [id number] Given 07/26/2018 Influenza Virus Vaccine, No immediate reaction [id number] Quadrivalent, Split, Preservative Free [id number] Given 04/28/2017 Influenza Virus Vaccine, No immediate [id number] Quadrivalent, Split, reaction...jh Preservative Free [id number] Given 03/28/2011 Influenza Virus 3Yrs & Over [id number] Vital Signs Date Vital Result Comment 04/17/2019 4:15pm Height 68 inches 5'8" Weight 237.38 lb Heart Rate 121 /min BP Systolic 144 mmHg BP Diastolic 85 mmHg Body Temperature 99.4 F O2 % BldC Oximetry 96 % BMI (Body Mass Index) 36.1 kg/m2 02/28/2019 2:46pm Height 68 inches 5'8" Weight 232.38 lb Heart Rate 121 /min BP Systolic 126 mmHg BP Diastolic 84 mmHg Body Temperature 98.0 F O2 % BldC Oximetry 97 % BMI (Body Mass Index) 35.3 kg/m2 Results Test Date Facility Test Result H/L Range Note Comp Metabolic 02/28/2019 [facility] Sodium 137 mmol/L Normal 135-[address] [place] [address] [phone] Potassium 4.4 mmol/L Normal 3.5-5.0 Chloride 103 mmol/L Normal 101-111 Co2 Carbon Dioxide 24 mmol/L Normal 22-32 Anion Gap 10 mmol/L Normal 2-11 Glucose 262 mg/dL High 70-100 Blood Urea Nitrogen 8 mg/dL Normal 6-24 Creatinine 0.61 mg/dL Normal 0.51-0.95 BUN/Creatinine Ratio 13.1 Normal 8-20 Calcium 9.5 mg/dL Normal 8.6-10.3 Total Protein 7.0 g/dL Normal 6.4-8.9 Albumin 4.3 g/dL Normal 3.2-5.2 Globulin 2.7 g/dL Normal 2-4 Albumin/Globulin Ratio 1.6 Normal 1-3 Total Bilirubin 0.50 mg/dL Normal 0.2-1.0 Alkaline Phosphatase 70 U/L Normal 34-104 Alt 36 U/L Normal 7-52 Ast 20 U/L Normal 13-39 Egfr Non- 113.0 >60 Egfr 136.7 >60 1 CBC Auto 02/28/2019 [facility] White Blood 10.0 10^3/uL Normal 3.5-10.[address] [place] [address] [phone] Red Blood Count 4.75 10^6/uL Normal 3.70-4.87 Hemoglobin 14.1 g/dL Normal 12.0-16.0 Hematocrit 42 % Normal 35-47 Mean Corpuscular Volume 88 fL Normal 80-97 Mean Corpuscular Hemoglobin 30 pg Normal 27-31 Mean Corpuscular HGB Conc 34 g/dL Normal 31-36 Red Cell Distribution Width 13 % Normal 10-15 Platelet Count 313 10^3/uL Normal 150-450 Mean Platelet Volume 8.3 fL Normal 7.4-10.4 Abs Neutrophils 5.9 10^3/uL Normal 1.5-7.7 Abs Lymphocytes 3.4 10^3/uL Normal 1.0-4.8 Abs Monocytes 0.5 10^3/uL Normal 0-0.8 Abs Eosinophils 0.1 10^3/uL Normal 0-0.6 Abs Basophils 0.1 10^3/uL Normal 0-0.2 Abs Nucleated RBC 0.0 10^3/uL Granulocyte % 59.5 % Lymphocyte % 33.8 % Monocyte % 5.2 % Eosinophil % 0.9 % Basophil % 0.6 % Nucleated Red Blood Cells % 0.0 Laboratory test 02/28/2019 [facility] Ferritin 83.7 ng/mL Normal 11-[address] [place] [address] [phone] Magnesium 1.7 mg/dL Low 1.9-2.7 TSH (Thyroid Stim Horm) 1.27 mcIU/mL Normal 0.34-5.60 Vitamin B12 472 pg/mL Normal 180-914 2 Lipid Profile 02/28/2019 [facility] Triglycerides 190 mg/dL 3 (Trig/Chol/HDL) [address] [place] [address] [phone] Cholesterol 213 mg/dL 4 HDL Cholesterol 32.9 mg/dL 5 LDL Cholesterol 142 mg/dL 6 Laboratory test 02/28/2019 [facility] Erythrocyte Sed 22 mm/Hr High 0-[address] [place] [address] [phone] C Reactive Protein 9.20 mg/L High <8.01 1 Because ethnic data is not always readily [...] 15-29 5 Kidney failure <15 (or dialysis) 2 Normal Range 180 to 914 Indeterminate Range 145 to 180 Deficient Range <145 3 Desirable: <150 Borderline High: 150-199 High: 200-499 Very High: >500 4 Desirable: <200 Borderline High: 200-239 High: >239 5 Low: <40 Desirable: 40-60 High: >60 6 Desirable: <100 Near Optimal: 100-129 Borderline High: 130-159 High: 160-189 Very High: >189 Procedures Description No Information Available Medical Devices Description No Information Available Encounters Type Date Location Provider Dx Diagnosis Office Visit 02/28/2019 2:40p [facility] Internal Adair Wick NP L70.0 Acne vulgaris Medicine - Ccmob R21 Rash and other nonspecific skin eruption G43.009 Migraine w/o aura, not intractable, w/o status migrainosus Office Visit 01/28/2019 4:20p [facility] Internal Cristian Salcedo G43.009 Migraine w/ o aura, Karyna Uriarte M.D. not intractable, Ccmob w/o status migrainosus Office Visit 12/12/2018 4:00p [facility] Internal Adair Delano, S16.1xxA Strain of muscle, Medicine - [employer] fascia and tendon Ccmob at neck level, init G43.009 Migraine w/o aura, not intractable, w/o status migrainosus H81.10 Benign paroxysmal vertigo, unspecified ear Office Visit 11/16/2018 2:20p [facility] Internal Adair Delano, K08.89 Other specified Medicine - Ccmob [employer] disorders of teeth and supporting structures R22.42 Localized swelling, mass and lump, left lower limb Assessments Date Code Description Provider 04/17/2019 G43.009 Migraine without aura, not intractable, Adair Delano, [employer] without status migrainosus 04/17/2019 K08.89 Other specified disorders of teeth and Adair Delano, [employer] supporting structures 04/17/2019 J01.90 Acute sinusitis, unspecified Adair Delano, [employer] 04/17/2019 H60.12 Cellulitis of left external ear Adair Delano, [employer] 04/17/2019 M79.18 Myalgia, other site Adair Delano, [employer] 04/17/2019 M54.5 Low back pain Adair Delano, [employer] 04/17/2019 R73.9 Hyperglycemia, unspecified Adair Delano, [employer] 02/28/2019 L70.0 Acne vulgaris Adair Delano, [employer] 02/28/2019 R21 Rash and other nonspecific skin eruption Adair Delano, [employer] 02/28/2019 G43.009 Migraine without aura, not intractable, Adair Delano, [employer] without status migra 01/28/2019 G43.009 Migraine without aura, not intractable, Cristian Uriarte M.D. without status migra 12/12/2018 S16.1xxA Strain of muscle, fascia and tendon at Adair Delano, [employer] neck level, initial e 12/12/2018 G43.009 Migraine without aura, not intractable, Adair Delano, [employer] without status migra 12/12/2018 H81.10 Benign paroxysmal vertigo, unspecified ear Adair Delano, [employer] 11/16/2018 K08.89 Other specified disorders of teeth and Adair Wick NP supporting structures 11/16/2018 R22.42 Localized swelling, mass and lump, left Adair Wick NP lower limb Plan of Treatment Future Appointment(s):07/03/2019 10:00 am - Jake Aaron M.D. at [facility]04/17/2019 - Adair Wick NPG43.009 Migraine without aura, not intractable, without status migrainosusNew Medication:Magnesium Oxide 400(240 Mg) mg - 1 by mouth every dayComments:You can use the Imitrex for your migraine. You can take a second tablet if pain persists after two hours.Keep your appointment with neurology in June. Your magnesium was low which may be contributing to your increased headaches. Start taking the magnesium sulfate daily.K08.89 Other specified disorders of teeth and supporting structuresFollow up:PT. referred to [facility] in November. What is the status of this referral.J01.90 Acute sinusitis, unspecifiedNew Medication:Doxycycline Monohydrate 100 mg - 1 by mouth twice a dayH60.12 Cellulitis of left external earNew Medication:Mupirocin 2 % - apply twice ryhdxG75.18 Myalgia, other siteM54.5 Low back painR73.9 Hyperglycemia, unspecified Functional Status Description No Information Available Mental Status Description No Information Available Referrals Refer to Reason for Referral Status Appt Date Ida Zarco MD Sent 07/03/2019 [address] [facility] [place] [address] [place] [address] [phone] [facility] Need to fax their referral form to Sent [phone] Refaxed referral 02/28 and given copy to pt [address] [place] [id number] [phone]
[2019-04-20 14:58] LABS: ALT 66 U/L (7-52); AST 51 U/L (13-39); Albumin 4.1 g/dL (3.2-5.2); Albumin/Globulin Ratio 1.3 (1-3); Alkaline Phosphatase 67 U/L (34-104); Anion Gap 7 mmol/L (2-11); BUN/Creatinine Ratio 10.5 (8-20); Blood Urea Nitrogen 6 mg/dL (6-24); CO2 Carbon Dioxide 25 mmol/L (22-32); Calcium 8.7 mg/dL (8.6-10.3); Chloride 106 mmol/L (101-111); EGFR African American 146.9 (>60); EGFR Non-African American 121.4 (>60); Globulin 3.2 g/dL (2-4); Glucose 170 mg/dL (70-100); Sodium 138 mmol/L (135-145); Total Protein 7.3 g/dL (6.4-8.9)
[2019-04-20 15:04] LABS: HCG Pregnancy < 0.60 mIU/mL
[2019-04-20] MEDS ORDERED: NS 0.9% 1000 ML** 1,000 ML IV ONE (15:58)
[2019-04-20] MEDS ORDERED: SUMAtriptan TAB* 50 MG PO ONE (16:22)
[2019-04-20 17:22] VITALS: BP 111/75
== END 2019-04-20 17:15 | disposition home or self-care (01) ==
LOC: ED 13:40
DX: R10.11 Right upper quadrant pain (principal); G43.909 Migraine, unspecified, not intractable, without status migrainosus; E11.9 Type 2 diabetes mellitus without complications; J45.909 Unspecified asthma, uncomplicated; F31.9 Bipolar disorder, unspecified; F17.290 Nicotine dependence, other tobacco product, uncomplicated; Z88.0 Allergy status to penicillin; Z88.8 Allergy status to other drugs, medicaments and biological substances; Z91.040 Latex allergy status; Z79.899 Other long term (current) drug therapy
CPT/HCPCS: 36415; 76705; 80053; 81003; 83690; 84702; 85025; 96361; 96374; 99282; A9270-GY; J2270

== ENCOUNTER 2019-07-13 16:04 | Emergency (ER) | payer MEDICARE, MEDICAID ==
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
[2019-07-13] MEDS ORDERED: Lidocaine PATCH 5%* 1 PATCH TRANSDERM ONE (16:40)
[2019-07-13] MEDS ORDERED: Acetaminophen TAB* 325 MG PO ONE (16:41)
[2019-07-13] MEDS ORDERED: Ibuprofen TAB* 600 MG PO ONE (16:41)
--- OUTSIDE RECORDS SUMMARY | 2019-07-13 16:58 | XMS REPORT ---
:1985 Author Organization [facility] Care Team Providers Name Role Phone Evangelina Paul Primary Care Physician Unavailable Allergies, Adverse Reactions, Alerts Allergy Code CodeSystem Reaction Severity Criticality Status Start Substance Date Moderate Medications Medication Medication Medication Start Stop Route Dose Status Fill Code CodeSystem Date Date Instructions olanzapine 381305 RxNorm 2019- oral 10 mg completed for 30 07-18 05-10 tablet,d day(s) isintegr ating olanzapine 847086 RxNorm 2019- oral 10 mg 1 completed 1 tablet 5 08-08 tablet,d once a day isintegr for 30 day(s) ating once a day Vyvanse 138494 RxNorm 2019- oral 30 mg 1 completed 1 capsule 01-16 09-21 capsule once a day once a for 30 day(s) day Vyvanse 040055 RxNorm 2019- oral 30 mg 1 completed 1 capsule 5 07-24 capsule once a day once a for 30 day(s) day olanzapine 622276 RxNorm 2019- oral 20 mg 1 completed 1 tablet 02-15 10-02 tablet,d once a day isintegr for 30 day(s) ating once a day escitalopram 458002 RxNorm 2019- oral 20 mg 1 completed 1 tablet oxalate 6-14 09-12 tablet once a day once a for 30 day(s) day Vyvanse 549071 RxNorm 2019- oral 30 mg 1 completed Take 1 4- 05-26 capsule capsule by every mouth every morning morning for 30 day(s) Vyvanse 336837 RxNorm 2019- oral 30 mg 1 completed 1 capsule 9-24 10-24 capsule once a day once a for 30 day(s) day bupropion HCl 783013 RxNorm 2019- oral 100 mg completed for 34 3- 04-26 tablet day(s) sustaine d-releas e 12 hr escitalopram 122810 RxNorm 2018- oral 10 mg completed for 30 oxalate 3- 05-10 tablet day(s) bupropion HCl 277905 RxNorm 2018- oral 100 mg 1 completed 1 tablet 4- 07-25 tablet twice a day sustaine for 30 day(s) d-releas e 12 hr twice a day Zyprexa Zydis 722796 RxNorm 2018-06- oral 20 mg 1 active 1 tablet 0- 12-31 tablet,d once a day isintegr for 30 day(s) ating once a day olanzapine 912660 RxNorm 2018- oral 20 mg 1 completed 1 tablet 5-10 08-08 tablet,d once a day isintegr for 30 day(s) ating once a day escitalopram 530363 RxNorm 2018- oral 10 mg 1 completed 1 tablet oxalate 5-10 06-14 tablet once a day once a for 30 day(s) day olanzapine 471555 RxNorm 2018- oral 20 mg completed for 30 1- 05-10 tablet,d day(s) isintegr ating Vyvanse 408837 RxNorm 2018-06- oral 30 mg 1 active 1 capsule 0-25 11-24 capsule once a day once a for 30 day(s) day escitalopram 543718 RxNorm 2018-06- oral 20 mg 1 active 1 tablet oxalate 0- 12-31 tablet once a day once a for 30 day(s) day Problems Problem Name Code CodeSystem Alternate Alternate Start End Status Narrative Code CodeSystem Date Date Binge eating 81928226 SNOMED-CT Active disorder 6-13 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 Relevant diagnostic tests/laboratory data Narrative No Information Procedures Procedure Code CodeSystem Target Date of Status Service Device Device Device Name Site Procedure Delivery Code Name UID Location Psychotherap [id number] SNOMED-CT () 2018-12-13 complete Mental y, 45 04 d Health- minutes with Rd patient [address], [id number] [id number] Psychotherap [id number] SNOMED-CT () 2019-04-30 complete Mental y, 45 04 d Health- minutes with [facility] patient [address], [phone] [phone] Psychotherap [id number] SNOMED-CT () 2019-05-07 complete Mental y, 45 04 d Health- minutes with Rd patient [address], [phone] [id number] Office or [id number] SNOMED-CT () 2019-03-27 complete Mental other 7 d Health- outpatient [facility] visit for [address], management [place], of an [place], established [phone] patient, [id number] which requires at least 2 of these 3 goodwin components: An expanded problem focused history; An expanded problem focused examination; Medical decision making of low SNOMED-CT () 2018-12-06 complete Mental d Health- [address], [id number] [phone] SNOMED-CT () 2019-02-14 complete Mental d Health- [address], [id number] [phone] Encounters/Encounter Diagnoses Encounter Name Encounter Diagnosis Diagnosis Diagnosis Date of Service Code Code Name CodeSystem Diagnosis Delivery Location Psychotherapy - 90314 SNOMED-CT 2019-05-07 Behavioral Individual [facility] [address] [place] [address], [phone] Vital Signs No Information Social History Element Description Description Start End Code CodeSystem AdditionalInfo Date Date SexAssignedAtBirth Female 1984-0 F AdministrativeGender 03-25 Hospital Discharge Instructions Reason For Referral Medical Equipment FDA Assessments
[2019-07-13 17:49] VITALS: BP 145/78
[2019-07-13] MEDS ORDERED: Lidocaine PATCH 5%* 1 PATCH TRANSDERM SCH (18:00)
[2019-07-13] MEDS ORDERED: Lidocaine Patch REMOVE* 1 NOTE MISC PATCH OFF SCH (21:00)
== END 2019-07-13 17:50 | disposition home or self-care (01) ==
LOC: ED 16:04
DX: M54.9 Dorsalgia, unspecified (principal); R53.1 Weakness; F17.210 Nicotine dependence, cigarettes, uncomplicated
CPT/HCPCS: 99282; A9270-GY

== ENCOUNTER 2021-05-10 16:52 | Inpatient (IN) ==
[2021-05-10] MEDS ORDERED: LORazepam 2 mg VIAL 1 ml IM ONE ×2 (17:04→17:43)
[2021-05-10] MEDS ORDERED: Lorazepam PYXIS KEY PRN ×2 (17:04→17:43)
[2021-05-10] MEDS ORDERED: Droperidol 5 MG/2 ML 2 ML VIAL IM ONE ×2 (17:04→17:43)
[2021-05-10] MEDS ORDERED: Lactated Ringers 1000 ml BAG 1,000 ML IV ONE (18:30)
[2021-05-10 19:19] LABS: ABS Basophils 0.1 10^3/ul (0-0.2); ABS Lymphocytes 2.1 10^3/ul (1.0-4.8); ABS Monocytes 0.8 10^3/ul (0-0.8); ABS Neutrophils 13.4 10^3/ul (1.5-7.7); Eosinophil % 0.1 %; Hematocrit 43 % (35-47); Hemoglobin 14.3 g/dL (12.0-16.0); Mean Corpuscular HGB Conc 34 g/dL (31-36); Mean Corpuscular Hemoglobin 30 pg (27-31); Mean Corpuscular Volume 89 fL (80-97); Mean Platelet Volume 7.7 fL (7.4-10.4); Platelet Count 326 10^3/uL (150-450); Red Blood Count 4.78 10^6 /uL (3.70-4.87); Red Cell Distribution Width 14 % (10-15); White Blood Count 16.4 10^3/uL (3.5-10.8)
[2021-05-10 19:33] LABS: Urine Appearance Cloudy; Urine Bilirubin Negative (Negative); Urine Blood Negative (Negative); Urine Color Straw; Urine Glucose Negative (Negative); Urine Ketones Negative (Negative); Urine Nitrite Negative (Negative); Urine Protein 1+(30 mg/dL) (Negative); Urine Specific Gravity 1.005 (1.002-1.030); Urine Urobilinogen Negative (Negative)
[2021-05-10 19:37] LABS: HCG Pregnancy < 0.60 mIU/mL
[2021-05-10 19:37] LABS: Urine Bacteria 3+ (Absent); Urine Red Blood Cell Trace(0-2/hpf) (Absent); Urine Squamous Epithelial Cell Present (Absent); Urine White Blood Cell Trace(0-5/hpf) (Absent)
[2021-05-10 19:53] LABS: ALT 12 U/L (7-52); AST 14 U/L (13-39); Albumin 4.3 g/dL (3.2-5.2); Albumin/Globulin Ratio 1.4 (1-3); Alkaline Phosphatase 55 U/L (35-149); Anion Gap 10 mmol/L (2-11); Blood Urea Nitrogen 8 mg/dL (6-24); CO2 Carbon Dioxide 23 mmol/L (22-32); Calcium 9.2 mg/dL (8.6-10.3); Chloride 107 mmol/L (101-111); Glucose 138 mg/dL (70-100); Potassium 3.8 mmol/L (3.5-5.0); Sodium 140 mmol/L (135-145); Total Protein 7.3 g/dL (6.4-8.9)
[2021-05-10 20:06] LABS: Urine Benzodiazepine Screen None Detected (None Detect); Urine Cannabinoids Screen None Detected (None Detect); Urine Opiates Screen None Detected (None Detect)
[2021-05-10 20:08] LABS: Acetaminophen < 15 mcg/mL; Alcohol, S < 13 mg/dL (<13); Salicylate < 2.50 mg/dL (<30)
[2021-05-10 20:31] LABS: TSH Ultra Thyroid Stim Horm 2.04 mcIU/mL (0.34-5.60)
[2021-05-11 09:33] LABS: Rapid COVID-19 Molecular Undetected (Undetected)
[2021-05-11] MEDS: Vitamin THERAPEUTIC TAB PO SCH (16:35)
[2021-05-11] MEDS: Nicotine PATCH 21 MG/24 HR PATCH TRANSDERM SCH (16:35)
[2021-05-11] MEDS: Nicotine GUM 2MG FRUIT FLAVOR PO PRN ×2 (17:33→22:41)
[2021-05-11] MEDS: Al Hydrox/Mg Hydrox/Simet LIQ 30 ML UDC PO PRN (22:31)
[2021-05-12] MEDS: Vitamin THERAPEUTIC TAB PO SCH (08:34)
[2021-05-12] MEDS: Nicotine PATCH 21 MG/24 HR PATCH TRANSDERM SCH (08:34)
[2021-05-12] MEDS: Nicotine GUM 2MG FRUIT FLAVOR PO PRN ×6 (08:34→21:14)
[2021-05-12] MEDS ORDERED: Flu vaccine *QUAD* 2021-22* 0.5 ML SYRINGE IM ONE (09:00)
[2021-05-13] MEDS: Nicotine PATCH 21 MG/24 HR PATCH TRANSDERM SCH (07:39)
[2021-05-13] MEDS: Vitamin THERAPEUTIC TAB PO SCH (10:25)
[2021-05-13] MEDS: Nicotine GUM 2MG FRUIT FLAVOR PO PRN ×4 (10:27→19:20)
[2021-05-13] MEDS ORDERED: Flu vaccine *QUAD* 2021-22* 0.5 ML SYRINGE IM ONE (14:00)
[2021-05-13] MEDS: Albuterol HFA INHALER 8 gm MDI INH PRN (16:52)
[2021-05-14] MEDS: Vitamin THERAPEUTIC TAB PO SCH (09:13)
[2021-05-14] MEDS: Nicotine GUM 2MG FRUIT FLAVOR PO PRN ×5 (09:13→20:44)
[2021-05-14] MEDS: Nicotine PATCH 21 MG/24 HR PATCH TRANSDERM SCH (11:24)
[2021-05-15] MEDS: Nicotine GUM 2MG FRUIT FLAVOR PO PRN ×3 (08:34→16:22)
[2021-05-15] MEDS: Vitamin THERAPEUTIC TAB PO SCH (08:34)
[2021-05-15] MEDS: Nicotine PATCH 21 MG/24 HR PATCH TRANSDERM SCH (08:35)
[2021-05-15] MEDS: Albuterol HFA INHALER 8 gm MDI INH PRN (08:35)
[2021-05-15] MEDS: Al Hydrox/Mg Hydrox/Simet LIQ 30 ML UDC PO PRN (22:12)
[2021-05-16] MEDS: Nicotine PATCH 21 MG/24 HR PATCH TRANSDERM SCH (09:39)
[2021-05-16] MEDS: Vitamin THERAPEUTIC TAB PO SCH (09:39)
[2021-05-16] MEDS: Nicotine GUM 2MG FRUIT FLAVOR PO PRN ×4 (10:04→20:27)
[2021-05-16] MEDS: Al Hydrox/Mg Hydrox/Simet LIQ 30 ML UDC PO PRN (16:28)
[2021-05-17] MEDS: Nicotine GUM 2MG FRUIT FLAVOR PO PRN ×4 (08:48→19:37)
[2021-05-17] MEDS: Vitamin THERAPEUTIC TAB PO SCH (08:50)
[2021-05-17] MEDS: Nicotine PATCH 21 MG/24 HR PATCH TRANSDERM SCH (08:50)
[2021-05-18] MEDS: Vitamin THERAPEUTIC TAB PO SCH (09:09)
[2021-05-18] MEDS: Nicotine PATCH 21 MG/24 HR PATCH TRANSDERM SCH (09:11)
[2021-05-18] MEDS: Nicotine GUM 2MG FRUIT FLAVOR PO PRN ×4 (09:12→20:39)
[2021-05-18] MEDS: Al Hydrox/Mg Hydrox/Simet LIQ 30 ML UDC PO PRN (17:31)
[2021-05-19] MEDS: Nicotine GUM 2MG FRUIT FLAVOR PO PRN ×4 (06:23→21:13)
[2021-05-19] MEDS: Vitamin THERAPEUTIC TAB PO SCH (08:50)
[2021-05-19] MEDS: Nicotine PATCH 21 MG/24 HR PATCH TRANSDERM SCH (09:02)
[2021-05-19] MEDS ORDERED: Paliperidone SUSTENNA 234 MG/1.5 ML IM ONE (10:14)
[2021-05-20] MEDS: Vitamin THERAPEUTIC TAB PO SCH (08:55)
[2021-05-20] MEDS: Nicotine GUM 2MG FRUIT FLAVOR PO PRN ×3 (08:56→20:07)
[2021-05-20] MEDS: Nicotine PATCH 21 MG/24 HR PATCH TRANSDERM SCH (17:03)
[2021-05-20] MEDS: Al Hydrox/Mg Hydrox/Simet LIQ 30 ML UDC PO PRN (17:11)
[2021-05-21] MEDS: Al Hydrox/Mg Hydrox/Simet LIQ 30 ML UDC PO PRN ×2 (00:56→17:13)
[2021-05-21] MEDS: Nicotine GUM 2MG FRUIT FLAVOR PO PRN ×5 (00:59→20:47)
[2021-05-21] MEDS: Vitamin THERAPEUTIC TAB PO SCH (08:20)
[2021-05-21] MEDS: Nicotine PATCH 21 MG/24 HR PATCH TRANSDERM SCH (08:21)
[2021-05-22] MEDS: Vitamin THERAPEUTIC TAB PO SCH (08:08)
[2021-05-22] MEDS: Nicotine PATCH 21 MG/24 HR PATCH TRANSDERM SCH (08:09)
[2021-05-22] MEDS: Nicotine GUM 2MG FRUIT FLAVOR PO PRN ×4 (08:11→18:59)
[2021-05-22] MEDS ORDERED: CMC:diPHENhydraMINE CREAM 2%(NF) 28 gm TUBE TOPICAL PRN (12:57)
[2021-05-22] MEDS: Al Hydrox/Mg Hydrox/Simet LIQ 30 ML UDC PO PRN (14:53)
[2021-05-23] MEDS: Vitamin THERAPEUTIC TAB PO SCH (08:39)
[2021-05-23] MEDS: Nicotine GUM 2MG FRUIT FLAVOR PO PRN ×3 (08:39→18:53)
[2021-05-23] MEDS: Al Hydrox/Mg Hydrox/Simet LIQ 30 ML UDC PO PRN ×2 (11:33→15:15)
[2021-05-23] MEDS: Nicotine PATCH 21 MG/24 HR PATCH TRANSDERM SCH (11:59)
[2021-05-23 19:57] LABS: Urine Appearance Turbid; Urine Bilirubin Negative (Negative); Urine Blood Negative (Negative); Urine Color Yellow; Urine Glucose Negative (Negative); Urine Ketones Negative (Negative); Urine Nitrite Negative (Negative); Urine Protein Negative (Negative); Urine Specific Gravity 1.017 (1.002-1.030); Urine Urobilinogen Negative (Negative)
[2021-05-24] MEDS: Vitamin THERAPEUTIC TAB PO SCH (08:23)
[2021-05-24] MEDS: Nicotine GUM 2MG FRUIT FLAVOR PO PRN ×4 (08:24→20:16)
[2021-05-24] MEDS: Nicotine PATCH 21 MG/24 HR PATCH TRANSDERM SCH (10:11)
[2021-05-24] MEDS: Sulfamethox/Trimethoprim DS TAB 800/160 mg PO SCH (20:07)
[2021-05-25] MEDS: Sulfamethox/Trimethoprim DS TAB 800/160 mg PO SCH ×2 (08:36→21:00)
[2021-05-25] MEDS: Vitamin THERAPEUTIC TAB PO SCH (08:36)
[2021-05-25] MEDS: Nicotine PATCH 21 MG/24 HR PATCH TRANSDERM SCH (08:36)
[2021-05-25] MEDS: Nicotine GUM 2MG FRUIT FLAVOR PO PRN ×3 (08:37→21:02)
[2021-05-25] MEDS: Al Hydrox/Mg Hydrox/Simet LIQ 30 ML UDC PO PRN (18:37)
[2021-05-26 00:57] VITALS: BP 138/73
[2021-05-26] MEDS: Vitamin THERAPEUTIC TAB PO SCH (08:26)
[2021-05-26] MEDS: Nicotine PATCH 21 MG/24 HR PATCH TRANSDERM SCH (08:27)
[2021-05-26] MEDS: Sulfamethox/Trimethoprim DS TAB 800/160 mg PO SCH (08:27)
[2021-05-26] MEDS: Nicotine GUM 2MG FRUIT FLAVOR PO PRN (08:29)
[2021-05-26] MEDS: Al Hydrox/Mg Hydrox/Simet LIQ 30 ML UDC PO PRN (10:14)
== END 2021-05-26 10:30 | disposition home or self-care (01) | DRG 885 ==
LOC: ED 16:52 → BSU 05-11 07:27
PROVIDERS: ADMIT Psychiatry & Neurology Psychiatry; ATTEND Psychiatry & Neurology Psychiatry

== ENCOUNTER 2023-06-12 14:43 | Observation (INO) ==
[2023-06-12] MEDS ORDERED: Vancomycin 1,500 MG in NS 0.9% 250 ml 250 ML IVPB ONE (14:52)
[2023-06-12 15:34] LABS: ABS Basophils 0.1 10^3/uL (0.0-0.1); ABS Monocytes 0.4 10^3/uL (0.0-0.9); ABS Neutrophils 6.8 10^3/uL (1.5-7.6); Eosinophil % 0.4 %; Hematocrit 45.5 % (35-45); Hemoglobin 15.5 g/dL (11.5-14.3); Lymphocyte % 21.6 %; Mean Corpuscular Hemoglobin 30.3 pg (27-33); Mean Corpuscular Hgb Conc 34.1 g/dL (31-36); Mean Corpuscular Volume 89.1 fL (80-97); Mean Platelet Volume 7.1 fL (7.5-11.2); Nucleated Red Blood Cells % 0.1 %/100WBC (0.0-0.8); Platelet Count 435 10^3/uL (150-450); Red Blood Count 5.11 10^6/uL (3.63-4.92); Red Cell Distribution Width 13.2 % (12-17); White Blood Count 9.4 10^3/uL (3.8-11.8)
[2023-06-12 15:56] LABS: Albumin 4.4 g/dL (3.2-5.2); Albumin/Globulin Ratio 1.4 (1-3); C Reactive Protein 5.23 mg/L (<8.01); Calcium 9.2 mg/dL (8.6-10.3); Creatinine, Serum 0.66 mg/dL (0.51-0.95); Globulin 3.1 g/dL (2-4); Total Bilirubin 0.7 mg/dL (0.2-1.0); Total Protein 7.5 g/dL (6.4-8.9); eGFR CKD-EPI 115.1 (>60)
[2023-06-12] MEDS ORDERED: LEVOCETIRIZINE 5 MG PO PRN (17:25)
[2023-06-12] MEDS ORDERED: Albuterol HFA INHALER 8 gm MDI INH PRN (17:25)
[2023-06-12] MEDS ORDERED: Dextrose 50% Syringe 50 ml 25 GM/50 ML SYRINGE IV PUSH PRN (17:28)
[2023-06-12] MEDS ORDERED: Vancomycin per Pharmacy 1 EA NOTE FOLLOW UP SCH (18:00)
[2023-06-12] MEDS: metroNIDAZOLE IV 500 MG/100ML 500 MG/100 ML BAG IVPB SCH (18:55)
[2023-06-12] MEDS: Morphine 2 MG/ML SYRINGE IV PRN (22:49)
[2023-06-13] MEDS: Vancomycin 1,250 MG in NS 0.9% 250 ml 250 ML IVPB SCH ×4 (00:39→21:16)
[2023-06-13] MEDS: metroNIDAZOLE IV 500 MG/100ML 500 MG/100 ML BAG IVPB SCH ×3 (02:31→17:10)
[2023-06-13] MEDS: Morphine 2 MG/ML SYRINGE IV PRN (08:23)
[2023-06-13] MEDS: OLANZapine 10 mg TAB*ODT PO SCH (08:23)
[2023-06-13 10:36] LABS: ABS Basophils 0.1 10^3/uL (0.0-0.1); ABS Eosinophils 0.1 10^3/uL (0.0-0.5); ABS Lymphocytes 3.6 10^3/uL (1.0-4.8); ABS Monocytes 0.7 10^3/uL (0.0-0.9); ABS Neutrophils 4.4 10^3/uL (1.5-7.6); ABS Nucleated RBC 0.01 10^3/ul; Eosinophil % 1.1 %; Hematocrit 38.6 % (35-45); Hemoglobin 13.1 g/dL (11.5-14.3); Lymphocyte % 40.7 %; Mean Corpuscular Volume 88.4 fL (80-97); Nucleated Red Blood Cells % 0.1 %/100WBC (0.0-0.8); Platelet Count 368 10^3/uL (150-450); Red Blood Count 4.36 10^6/uL (3.63-4.92); Red Cell Distribution Width 12.9 % (12-17); White Blood Count 8.9 10^3/uL (3.8-11.8)
[2023-06-13 11:00] LABS: C Reactive Protein 2.95 mg/L (<8.01)
[2023-06-13 12:47] LABS: Calcium 8.5 mg/dL (8.6-10.3); Creatinine, Serum 0.62 mg/dL (0.51-0.95); Magnesium 1.8 mg/dL (1.9-2.7); Potassium 4.3 mmol/L (3.5-5.0); eGFR CKD-EPI 116.8 (>60)
[2023-06-13] MEDS: Senna TAB 8.6 mg TAB PO SCH (17:10)
[2023-06-13] MEDS ORDERED: Enoxaparin 40 MG/0.4 ML SYR SUBCUT SCH (19:00)
[2023-06-14] MEDS: metroNIDAZOLE IV 500 MG/100ML 500 MG/100 ML BAG IVPB SCH ×2 (02:40→10:12)
[2023-06-14] MEDS ORDERED: Vancomycin Trough Check NOTE FOLLOW UP ONE ×2 (05:30→13:30)
[2023-06-14] MEDS: Vancomycin 1,250 MG in NS 0.9% 250 ml 250 ML IVPB SCH ×2 (05:39→15:27)
[2023-06-14] MEDS: OLANZapine 10 mg TAB*ODT PO SCH (10:11)
[2023-06-14] MEDS: Senna TAB 8.6 mg TAB PO SCH (10:11)
[2023-06-14 13:23] LABS: ABS Basophils 0.1 10^3/uL (0.0-0.1); ABS Eosinophils 0.1 10^3/uL (0.0-0.5); ABS Monocytes 0.5 10^3/uL (0.0-0.9); ABS Neutrophils 4.6 10^3/uL (1.5-7.6); Eosinophil % 1.1 %; Hematocrit 39.2 % (35-45); Hemoglobin 13.1 g/dL (11.5-14.3); Lymphocyte % 36.3 %; Mean Corpuscular Hemoglobin 29.9 pg (27-33); Mean Corpuscular Hgb Conc 33.5 g/dL (31-36); Mean Corpuscular Volume 89.2 fL (80-97); Mean Platelet Volume 7.2 fL (7.5-11.2); Platelet Count 353 10^3/uL (150-450); Red Cell Distribution Width 12.9 % (12-17); White Blood Count 8.3 10^3/uL (3.8-11.8)
[2023-06-14 14:03] VITALS: BP 145/63
[2023-06-14 14:12] LABS: C Reactive Protein 2.01 mg/L (<8.01); Calcium 8.6 mg/dL (8.6-10.3); Creatinine, Serum 0.68 mg/dL (0.51-0.95); Magnesium 1.7 mg/dL (1.9-2.7); Phosphorus 3.3 mg/dL (2.5-5.0); eGFR CKD-EPI 114.3 (>60)
[2023-06-14] MEDS: Magic MouthWash2-BEN/MAAL/LIDO/NYST 240 ML BTL (alt formulation) SWISH SPIT SCH ×2 (17:07)
[2023-06-16] MEDS ORDERED: Vancomycin Trough Check NOTE FOLLOW UP ONE (05:30)
== END 2023-06-14 18:13 | disposition home or self-care (01) ==
LOC: EDHOLD 14:43 → ED 14:43 → SUATTDRO 16:43 → MEDTELE 16:43
PROVIDERS: ADMIT Internal Medicine; ATTEND Internal Medicine